=== PATIENT | female | born 1970 | race Caucasian/White ===

== ENCOUNTER → 2018-07-23 11:05 | Outpatient (CLI) | payer OTHER, SELFPAY ==
[2018-07-23 11:37] LABS: Add Manual Diff / Slide Review NO; Basophils Percent Auto 0.4 % (0-2); Eosinophils Percent Auto 2.2 % (2-4); Hematocrit 39.8 % (36-46); Hemoglobin 13.5 g/dL (12.0-16.0); Mean Corpuscular HGB Conc 33.8 % (30-36); Mean Corpuscular Hemoglobin 29.2 PG (26-34); Mean Corpuscular Volume 86.4 fL (80-100); Monocytes Percent Auto 6.6 % (3-14); Neutrophils Absolute Auto 3100 /uL (3000-5900); Neutrophils Percent Auto 65.8 % (50-75); Platelet Count 252 X10^3/uL (150-400); Red Cell Distribution Width 13.4 % (11.6-14.8); White Blood Cell Count 4.8 X10^3/uL (4.5-11.0)
[2018-07-23 11:53] LABS: Alanine Aminotransferase 24 IU/L (9-52); Albumin 4.9 g/dL (3.5-5.0); Albumin Globulin Ratio 1.3 (1.0-2.8); Alkaline Phosphatase 67 U/L (38-126); Aspartate Aminotransferase 28 IU/L (14-36); BUN Creatinine Ratio 22.9 (6-22); Bilirubin Total 0.3 mg/dL (0.2-1.3); Blood Urea Nitrogen 16 mg/dL (7-17); Calcium 9.7 mg/dL (8.4-10.2); Carbon Dioxide 27 mmol/L (22-32); Chloride 100 mmol/L (98-107); Cholesterol 245 mg/dL (140-199); Estimated Glomerular Filt Rate > 60.0 mL/min (>60); Globulin 3.7 g/dL (1.7-4.1); Glucose 92 mg/dL (70-100); HDL Cholesterol 78 mg/dL (40-60); HEMOLYSIS < 15 (0-50); LDL Cholesterol Calculated 151 mg/dL (<100); Potassium 4.2 mmol/L (3.4-5.1); Sodium 142 mmol/L (137-145); Total Protein 8.6 g/dL (6.3-8.2); Triglycerides 80 mg/dL (35-150)
[2018-07-23 12:12] LABS: Free T3, Triiodothyronine Free 3.67 pg/mL (2.77-5.27); Free T4, Direct Thyroxine 1.45 ng/dL (0.78-2.19)
[2018-07-23 12:26] LABS: Thyroid Stimulating Hormone 0.83 uIU/mL (0.47-4.68)
[2018-07-25 14:32] LABS: Thyroid Peroxidase Antibodies 332 IU/mL (< 9)
[2018-07-26 14:10] LABS: QuantiFERON TB NEGATIVE (Negative)
== END ==
PROVIDERS: Visit Provider Naturopath
DX: Z00.00 Encounter for general adult medical examination without abnormal findings (principal); E06.3 Autoimmune thyroiditis
CPT/HCPCS: 36415; 80053; 80061; 84439; 84443; 84481; 85025; 86376; 86480

== ENCOUNTER 2019-01-19 11:15 | Outpatient (RCR) | payer OTHER, SELFPAY ==
--- NOTE | 2018-11-20 16:09 | PT.OIE ---
Current Diagnoses Pain in right shoulder (11/20/18) Cervicalgia (11/20/18) Provider Visit Care Team Role Provider Type Becki Dickerson ND Attending Provider Non-Staff Primary Care Provider Specialty: Naturopathy Address: [address] [place] [address], [facility] Email: Physical Therapy Initial Evaluation PT-OP-A Visit Information Start: 11/20/18 14:32 Freq: Status: Active Protocol: Document 11/20/18 14:34 [facility] (Rec: 11/20/18 16:09 [facility] [id number]) Out-Patient Physical Therapy Visit Information Visit Information Visit Type Initial Evaluation Visit Start Time 14:35 Visit Stop Time 15:30 Total Visit Minutes 55 Visit Number 09/09 Number of SINKER PULLER Visits 0 PT-OP-B Current Condition Start: 11/20/18 14:32 Freq: Status: Active Protocol: Document 11/20/18 14:34 [facility] (Rec: 11/20/18 15:29 [facility] [id number]) Current Condition History of Current Condition History of Current Condition Pt reports the pain started about 2 weeks ago during a run and she felt it in her upper arm and shoulder and down into shoulder blade. Pt reprots it improved and then went for a 10 mile run the next week on Friday and was tilting her head back in the shower and the pain was intense in R scapular region. She has not felt it in her upper arm since the first time. On Friday, she was feeling it up her neck and starting to give her a SHAW until she had a coworker massaged it and she used ice then heat and TENs later. Treatment Goals Patient/Caregiver Goals Dec pain and be able to run w/ o pain-plans to do a marathon. Sleep through the night without pain. PT-OP-C Subjective Start: 11/20/18 14:32 Freq: Status: Active Protocol: Document 11/20/18 14:34 [facility] (Rec: 11/20/18 15:29 [facility] [id number]) Patient Questionnaires Neck Disability Index NDI Score 10 Neck Disability Index Impairment 20 to 39% Impaired (Score 10- 19) Quick Dash- Upper Extremity Quick Dash UE Score 25 Quick Dash UE Impairment 20 to 39% Impaired (Score 20- 39) OP-PT Pain Assessment Location R scap Pain Location Details medial border Intensity 3 Scale Used Numeric (1 - 10) Description Aching Description- Other at worst 8/10 Frequency Intermittent Radiating Location SHAW & up neck & into R shoulder Other Pain Aggravating Factors rolling position, running, Pain Alleviating Factors Heat Other Pain Alleviating Factors ESTIM, neutralize spine PT-OP-F Manual Assessment Start: 11/20/18 14:32 Freq: Status: Active Protocol: Document 11/20/18 14:34 [facility] (Rec: 11/20/18 15:29 [facility] [id number]) Manual Assessments Soft Tissue Assessment Soft Tissue Mobility Assessment Tightness through parascapular mm, UT, LS Joint Mobility Assessment Joint Mobility Assessment elevated clavicle at SC joint R, R elevated 1st rib PT-OP-G Mobility & Gait Start: 11/20/18 14:32 Freq: Status: Active Protocol: Document 11/20/18 14:34 [facility] (Rec: 11/20/18 16:09 [facility] [id number]) OP Gait Assessment Comments Gait Comments Running-pt has elevation of shoulder girdle with ext of shoulder during running. PT-OP-J Posture/Palpation/Skin Start: 11/20/18 14:32 Freq: Status: Active Protocol: Document 11/20/18 14:34 [facility] (Rec: 11/20/18 16:09 [facility] [id number]) Posture Evaluation [facility] Postural Classification System Martin Postural Classifications Vertical/Posterior Elbow Flexion Test 0 PT-OP-K Range of Motion Start: 11/20/18 14:32 Freq: Status: Active Protocol: Document 11/20/18 14:34 [facility] (Rec: 11/20/18 15:29 [facility] [id number]) Cervical Spine Range of Motion Cervical Spine Active Degrees Testing Position Sitting Flexion 50 Extension 61 Rotation Left 70 Rotation Right 58 Lateral Flexion Left 35 Lateral Flexion Right 43 ROM Limitations Soft Tissue Tightness Pain Comments Shoulder ROM WNL but pain w/ abd, Habd/add, & rot PT-OP-L Special Tests Start: 11/20/18 14:32 Freq: Status: Active Protocol: Document 11/20/18 14:34 [facility] (Rec: 11/20/18 16:09 [facility] [id number]) Special Tests Cervical Spine Special Tests VAT Test Results quadrant neg Alar Ligament Test Results neg spurling Test Results neg PT-OP-M Strength Start: 11/20/18 14:32 Freq: Status: Active Protocol: Document 11/20/18 14:34 [facility] (Rec: 11/20/18 15:29 [facility] [id number]) Shoulder Strength Shoulder Manual Muscle Testing Right Flexion 4 Good Extension 4+ Good+ Abduction (C5) 4 Good External Rotation 4 Good Internal Rotation 5 Normal Left Reason Not Measured WFL PT-OP-Q Treatments Start: 11/20/18 14:32 Freq: Status: Active Protocol: Document 11/20/18 14:34 [facility] (Rec: 11/20/18 16:09 [facility] [id number]) Therapeutic Exercises Standing Exercises wall posture Standing Exercise Name w/90/90 ER Side bilateral Reps/Minutes 10 Manual Therapy Treatment Soft Tissue Mobilization UT/LS Body Location UT/LS Mobilization Type Rolling Intensity/Depth Moderate Body Position Sidelying Joint Mobilizations AC Joint AC Direction clavicle ant FM Body Position Supine SC Joint SC Direction caudal FM clavicle Body Position Supine Neuro Re-Education Treatment Other Activities post depression Details post scapular depression Comments rhythmic initiation progressed to combo of isotonics w/UE resistance PT-OP-T Assessment and Plan Start: 11/20/18 14:32 Freq: Status: Active Protocol: Document 11/20/18 14:34 [facility] (Rec: 11/20/18 16:09 [facility] [id number]) Physical Therapy Assessment Rehab Potential Rehabilitation Potential Good Evaluation Complexity Number of Personal Factors/Comorbidities 1-2 Clinical Presentation at Evaluation Evolving Impairments Impairments Activity Tolerance Functional Activities Functional Mobility Gait Pain Posture ROM Soft Tissue Mobility Strength Goals Strength Short Term Goal (STG) Pt will be indep with HEP. STG Duration 12/20/18 Fdc Goal (LTG) Pt will have 5/5 BUE without pain to allow typical activities without pain. LTG Duration 01/20/19 ROM Galvanizer Zinc Goal (LTG) Pt will have full neck & shoulder ROM without pain to allow functional return to activities without pain. LTG Duration 01/20/19 activity tolerance Short Term Goal (STG) Pt will be able to position herself when sleeping and not have pain waking her up. STG Duration 12/20/18 Galvanizer Zinc Goal (LTG) Pt will be able to run any length without inc of neck/ shoulder pain. LTG Duration 01/20/19 Assessment Summary Assessment Pt presents with R scapular pain that has affected her ability to do long runs and have caused SHAW during daily activities. Pain has travelled between neck, scapula & R shoulder. She has impaired running mechanics & scapular patterning. Physical Therapy Plan Frequency and Duration Frequency of Treatment 1-2x/week Duration of Treatment 2 months Plan of Care Start Date 11/20/18 Plan of Care End Date 01/20/19 Therapeutic Interventions Therapeutic Interventions Gait Training Home Exercise Program Joint Mobilizations Manual Therapy Neuromuscular Re-education Patient/Caregiver Education Self-Care/Home Management Soft Tissue Mobilization Taping Therapeutic Activities Therapeutic Exercises Modalities Cold Pack/Ice Massage Electric Stimulation Hot Packs Infrared Therapy Iontophoresis Traction- Mechanical Ultrasound Next Visit Focus/Plan Next Note Type Treatment Note Next Visit Plan cont to work on neuro redu, work on rowing and lat pull down strength, shoulder mobs
--- NOTE | 2018-11-20 16:09 | PT.OPPOC ---
Current Diagnoses Pain in right shoulder (11/20/18) Cervicalgia (11/20/18) Provider Visit Care Team Role Provider Type Becki Dickerson ND Attending Provider Non-Staff Primary Care Provider Specialty: Naturopathy Address: [address] [place] [address], [facility] Email: Plan Of Care PT-OP-T Assessment and Plan Start: 11/20/18 14:32 Freq: Status: Active Protocol: Document 11/20/18 14:34 [facility] (Rec: 11/20/18 16:09 [facility] [id number]) Physical Therapy Assessment Rehab Potential Rehabilitation Potential Good Evaluation Complexity Number of Personal Factors/Comorbidities 1-2 Clinical Presentation at Evaluation Evolving Impairments Impairments Activity Tolerance Functional Activities Functional Mobility Gait Pain Posture ROM Soft Tissue Mobility Strength Goals Strength Short Term Goal (STG) Pt will be indep with HEP. STG Duration 12/20/18 Detention Goal (LTG) Pt will have 5/5 BUE without pain to allow typical activities without pain. LTG Duration 01/20/19 ROM Physical Therapy Instructor Goal (LTG) Pt will have full neck & shoulder ROM without pain to allow functional return to activities without pain. LTG Duration 01/20/19 activity tolerance Short Term Goal (STG) Pt will be able to position herself when sleeping and not have pain waking her up. STG Duration 12/20/18 Detention Goal (LTG) Pt will be able to run any length without inc of neck/ shoulder pain. LTG Duration 01/20/19 Assessment Summary Assessment Pt presents with R scapular pain that has affected her ability to do long runs and have caused SHAW during daily activities. Pain has travelled between neck, scapula & R shoulder. She has impaired running mechanics & scapular patterning. Physical Therapy Plan Frequency and Duration Frequency of Treatment 1-2x/week Duration of Treatment 2 months Plan of Care Start Date 11/20/18 Plan of Care End Date 01/20/19 Therapeutic Interventions Therapeutic Interventions Gait Training Home Exercise Program Joint Mobilizations Manual Therapy Neuromuscular Re-education Patient/Caregiver Education Self-Care/Home Management Soft Tissue Mobilization Taping Therapeutic Activities Therapeutic Exercises Modalities Cold Pack/Ice Massage Electric Stimulation Hot Packs Infrared Therapy Iontophoresis Traction- Mechanical Ultrasound Next Visit Focus/Plan Next Note Type Treatment Note Next Visit Plan cont to work on neuro redu, work on rowing and lat pull down strength, shoulder mobs Plan of Care Dates Plan of Care Start Date 11/20/18 Plan of Care End Date 01/20/19 Please Sign and Return: I have reviewed this Plan of Care and certify that the skilled therapy services above are required to meet the patient?s needs. Physician Signature Date Printed Name and Credentials Clinical Instructor Signature Printed Name and Credentials
--- NOTE | 2018-11-23 18:59 | PT.OTN ---
Current Diagnoses Pain in right shoulder (11/23/18) Cervicalgia (11/23/18) Physical Therapy Treatment Note PT-OP-A Visit Information Start: 11/20/18 14:32 Freq: Status: Active Protocol: Document 11/23/18 18:54 [facility] (Rec: 11/23/18 18:59 [facility] [id number]) Out-Patient Physical Therapy Visit Information Visit Information Visit Type Treatment Note Visit Start Time 16:50 Visit Stop Time 17:40 Total Visit Minutes 50 Visit Number 2 Number of RUBBER GOODS FINISHER Visits 0 PT-OP-B Current Condition Start: 11/20/18 14:32 Freq: Status: Active Protocol: Document 11/20/18 14:34 [facility] (Rec: 11/20/18 15:29 [facility] [id number]) Current Condition History of Current Condition History of Current Condition Pt reports the pain started about 2 weeks ago during a run and she felt it in her upper arm and shoulder and down into shoulder blade. Pt reprots it improved and then went for a 10 mile run the next week on Friday and was tilting her head back in the shower and the pain was intense in R scapular region. She has not felt it in her upper arm since the first time. On Friday, she was feeling it up her neck and starting to give her a SHAW until she had a coworker massaged it and she used ice then heat and TENs later. Treatment Goals Patient/Caregiver Goals Dec pain and be able to run w/ o pain-plans to do a marathon. Sleep through the night without pain. PT-OP-C Subjective Start: 11/20/18 14:32 Freq: Status: Active Protocol: Document 11/23/18 18:54 [facility] (Rec: 11/23/18 18:59 [facility] [id number]) OP-PT Subjective Patient Comments Patient Comments Pt reports she was sore in her LB, R knee & R shoulder blade after race. She is feeling better today but still feels it in her shoulder blade. She feels like she does not connect well through that side . PT-OP-F Manual Assessment Start: 11/20/18 14:32 Freq: Status: Active Protocol: Document 11/20/18 14:34 [facility] (Rec: 11/20/18 15:29 [facility] [id number]) Manual Assessments Soft Tissue Assessment Soft Tissue Mobility Assessment Tightness through parascapular mm, UT, LS Joint Mobility Assessment Joint Mobility Assessment elevated clavicle at SC joint R, R elevated 1st rib PT-OP-G Mobility & Gait Start: 11/20/18 14:32 Freq: Status: Active Protocol: Document 11/20/18 14:34 [facility] (Rec: 11/20/18 16:09 [facility] [id number]) OP Gait Assessment Comments Gait Comments Running-pt has elevation of shoulder girdle with ext of shoulder during running. PT-OP-J Posture/Palpation/Skin Start: 11/20/18 14:32 Freq: Status: Active Protocol: Document 11/20/18 14:34 [facility] (Rec: 11/20/18 16:09 [facility] [id number]) Posture Evaluation Martin Postural Classification System Martin Postural Classifications Vertical/Posterior Elbow Flexion Test 0 PT-OP-K Range of Motion Start: 11/20/18 14:32 Freq: Status: Active Protocol: Document 11/20/18 14:34 [facility] (Rec: 11/20/18 15:29 [facility] [id number]) Cervical Spine Range of Motion Cervical Spine Active Degrees Testing Position Sitting Flexion 50 Extension 61 Rotation Left 70 Rotation Right 58 Lateral Flexion Left 35 Lateral Flexion Right 43 ROM Limitations Soft Tissue Tightness Pain Comments Shoulder ROM WNL but pain w/ abd, Habd/add, & rot PT-OP-L Special Tests Start: 11/20/18 14:32 Freq: Status: Active Protocol: Document 11/20/18 14:34 [facility] (Rec: 11/20/18 16:09 [facility] [id number]) Special Tests Cervical Spine Special Tests VAT Test Results quadrant neg Alar Ligament Test Results neg spurling Test Results neg PT-OP-M Strength Start: 11/20/18 14:32 Freq: Status: Active Protocol: Document 11/20/18 14:34 [facility] (Rec: 11/20/18 15:29 [facility] [id number]) Shoulder Strength Shoulder Manual Muscle Testing Right Flexion 4 Good Extension 4+ Good+ Abduction (C5) 4 Good External Rotation 4 Good Internal Rotation 5 Normal Left Reason Not Measured WFL PT-OP-Q Treatments Start: 11/20/18 14:32 Freq: Status: Active Protocol: Document 11/23/18 18:54 [facility] (Rec: 11/23/18 18:59 [facility] [id number]) Manual Therapy Treatment Soft Tissue Mobilization lats Body Location lats Mobilization Type Myofascial Release Comments plunger with shoulder abd scap Body Location med scap border & supraspinatus Mobilization Type Rolling Sustained Pressure Intensity/Depth Moderate UT/LS Body Location UT/LS & cervical paraspinals Mobilization Type Rolling Intensity/Depth Moderate Body Position Sidelying Neuro Re-Education Treatment Other Activities mass ext Details post elevation of scap & post depression of pelvis w/rolling mass flex Details ant dep of scap & ant elevation of pelvis w/ rolling post depression Details post scapular depression Comments rhythmic initiation progressed to combo of isotonics w/UE resistance PT-OP-T Assessment and Plan Start: 11/20/18 14:32 Freq: Status: Active Protocol: Document 11/23/18 18:54 [facility] (Rec: 11/23/18 18:59 [facility] [id number]) Physical Therapy Assessment Goals Strength Short Term Goal (STG) Pt will be indep with HEP. STG Duration 12/20/18 [facility] Goal (LTG) Pt will have 5/5 BUE without pain to allow typical activities without pain. LTG Duration 01/20/19 ROM [facility] Goal (LTG) Pt will have full neck & shoulder ROM without pain to allow functional return to activities without pain. LTG Duration 01/20/19 activity tolerance Short Term Goal (STG) Pt will be able to position herself when sleeping and not have pain waking her up. STG Duration 12/20/18 [facility] Goal (LTG) Pt will be able to run any length without inc of neck/ shoulder pain. LTG Duration 01/20/19 Assessment Summary Assessment Pt had improved rolling performance with cueing and facilitation. She does not connect well between UE and LE which may play a part in her injuries. She is improving in ability to do appropriate arm swing with running. Physical Therapy Plan Frequency and Duration Frequency of Treatment 1-2x/week Duration of Treatment 2 months Plan of Care Start Date 11/20/18 Plan of Care End Date 01/20/19 Next Visit Focus/Plan Next Note Type Treatment Note Next Visit Plan cont to work post depression of UE as well and progressive patterns between UE & LE movement, progress to crawling , scapular stabilization & shoulder mobs
--- NOTE | 2019-01-19 15:54 | PT.OTRE ---
Current Diagnoses Pain in right shoulder (01/19/19) Cervicalgia (01/19/19) Provider Visit Care Team Role Provider Type Becki Dickerson ND Attending Provider Non-Staff Primary Care Provider Specialty: Naturopathy Address: [address] [place] [address], [facility] Email: Physical Therapy Re-Evaluation PT-OP-A Visit Information Start: 11/20/18 14:32 Freq: Status: Active Protocol: Document 01/19/19 11:27 [facility] (Rec: 01/19/19 15:54 [facility] [id number]) Out-Patient Physical Therapy Visit Information Visit Information Visit Type Re-Evaluation Visit Start Time 11:15 Visit Stop Time 12:05 Total Visit Minutes 50 Visit Number 3 Number of TANK TERMINAL GAUGER Visits 0 PT-OP-B Current Condition Start: 11/20/18 14:32 Freq: Status: Active Protocol: Document 01/19/19 11:27 [facility] (Rec: 01/19/19 15:54 [facility] [id number]) Current Condition History of Current Condition History of Current Condition Pt has improved scapular & neck/shoulder pain but is reporting recent inc of lumbar pain and being limited in her running by R HS pain.S he has started chiro treatment Treatment Goals Patient/Caregiver Goals Dec pain and be able to run w/ o pain. Sleep through the night without pain. PT-OP-C Subjective Start: 11/20/18 14:32 Freq: Status: Active Protocol: Document 01/19/19 11:27 [facility] (Rec: 01/19/19 15:54 [facility] [id number]) OP-PT Subjective Patient Comments Patient Comments Pt reports shoulder is over all is doing better but is also noting LBP & R HS pain. She has been seeing a chiropractor for mobilizations who notes her pelvis is rotated and her L psoas is tight and she needs to get that worked on. PT-OP-F Manual Assessment Start: 11/20/18 14:32 Freq: Status: Active Protocol: Document 01/19/19 11:27 [facility] (Rec: 01/19/19 15:54 [facility] [id number]) Manual Assessments Soft Tissue Assessment Soft Tissue Mobility Assessment HS tightness 69 deg straight knee hip flex R & L91 deg Joint Mobility Assessment Joint Mobility Assessment elevated R iliac crest & post rotated PT-OP-G Mobility & Gait Start: 11/20/18 14:32 Freq: Status: Active Protocol: Document 11/20/18 14:34 [facility] (Rec: 11/20/18 16:09 [facility] [id number]) OP Gait Assessment Comments Gait Comments Running-pt has elevation of shoulder girdle with ext of shoulder during running. PT-OP-J Posture/Palpation/Skin Start: 11/20/18 14:32 Freq: Status: Active Protocol: Document 01/19/19 11:27 [facility] (Rec: 01/19/19 12:15 [facility] [id number]) Posture Evaluation Martin Postural Classification System Martin Postural Classifications Vertical/Posterior Vertebral Compression Test 4 Elbow Flexion Test 4 Lumbar Protective Mechanism Left AP 0 Lumbar Protective Mechanism Right AP 2 Lumbar Protective Mechanism Left PA 3 Lumbar Protective Mechanism Right PA 3 PT-OP-K Range of Motion Start: 11/20/18 14:32 Freq: Status: Active Protocol: Document 01/19/19 11:27 [facility] (Rec: 01/19/19 12:15 [facility] [id number]) Cervical Spine Range of Motion Cervical Spine Active Degrees Flexion 70 Extension 73 Rotation Left 81 Rotation Right 83 Lateral Flexion Left 30 Lateral Flexion Right 45 Comments Pain R rot & SB Lumbar Spine Range of Motion Lumbar Spine Active Degrees Flexion 71 Extension 42 Rotation Left 79 Rotation Right 81 Lateral Flexion Left 28 Lateral Flexion Right 21 PT-OP-L Special Tests Start: 11/20/18 14:32 Freq: Status: Active Protocol: Document 01/19/19 11:27 [facility] (Rec: 01/19/19 12:15 [facility] [id number]) Special Tests Lumbar Spine Special Tests Slump Test Results neg PT-OP-M Strength Start: 11/20/18 14:32 Freq: Status: Active Protocol: Document 01/19/19 11:27 [facility] (Rec: 01/19/19 15:54 [facility] [id number]) Shoulder Strength Shoulder Manual Muscle Testing Right Flexion 5 Normal Extension 5 Normal Abduction (C5) 5 Normal External Rotation 4 Good Internal Rotation 5 Normal Left Reason Not Measured WFL PT-OP-Q Treatments Start: 11/20/18 14:32 Freq: Status: Active Protocol: Document 01/19/19 11:27 [facility] (Rec: 01/19/19 15:54 [facility] [id number]) Therapeutic Exercises Standing Exercises row Standing Exercise Name B shoulder ext Side bilateral Equipment Used L1 Reps/Minutes 10x2 Therapeutic Activity Therapeutic Activity posture Name seated & standing edu Manual Therapy Treatment Soft Tissue Mobilization psoas Body Location L psoas Comments seated & supine FM w/use of UE chop pattern PT-OP-T Assessment and Plan Start: 11/20/18 14:32 Freq: Status: Active Protocol: Document 01/19/19 11:27 [facility] (Rec: 01/19/19 15:54 [facility] [id number]) Physical Therapy Assessment Rehab Potential Rehabilitation Potential Good Impairments Impairments Activity Tolerance Functional Activities Functional Mobility Gait Pain Posture ROM Soft Tissue Mobility Strength Goals posture Short Term Goal (STG) Pt will present with good posture without cueing. STG Duration 02/22/19 stability Sociology Faculty Member Goal (LTG) Pt will have 5/5 LPM, VCT & EFT in order to have improved stability of core to improve ribcage stability to dec shoulder, LB & HS pain. LTG Duration 03/22/19 Strength Short Term Goal (STG) Pt will be indep with HEP. STG Duration 12/20/18 Long-Term Goal (LTG) Pt will have 5/5 BUE without pain to allow typical activities without pain. 01/19-signficantly improved LTG Duration 02/19/19 ROM Sociology Faculty Member Goal (LTG) Pt will have full neck & shoulder ROM without pain to allow functional return to activities without pain. LTG Duration achieved activity tolerance Short Term Goal (STG) Pt will be able to position herself when sleeping and not have pain waking her up. 01/19-improved but pt having difficulty maintaining good positions STG Duration 02/26/19 Sociology Faculty Member Goal (LTG) Pt will be able to run any length without inc of neck/ shoulder pain. 01/19-improved ability to run with only some tightness in UE but is limited by LB & R HS at this time. Advance goal to be able to do long training runs without any LB, HS or cervical/shoulder pain. LTG Duration 03/22/19 Assessment Summary Assessment Pt presents with significant limitiation in HS ROM & is elevated on R side and rotated at PSIS. She is having significant problems with running, daily life and activity tolerance d/t this pain. She has improved significantly with stability of R shoulder & cervical ROM w / use of exercises & Physical Therapy Plan Frequency and Duration Frequency of Treatment 1-2x/week Duration of Treatment 2 months Plan of Care Start Date 01/19/19 Plan of Care End Date 03/21/19 Therapeutic Interventions Therapeutic Interventions Balance Training Gait Training Home Exercise Program Joint Mobilizations Manual Therapy Neuromuscular Re-education Patient/Caregiver Education Self-Care/Home Management Soft Tissue Mobilization Taping Therapeutic Activities Therapeutic Exercises Modalities Cold Pack/Ice Massage Electric Stimulation Hot Packs Infrared Therapy Iontophoresis Traction- Mechanical Ultrasound Next Visit Focus/Plan Next Note Type Treatment Note Next Visit Plan work on postural stability & core stability for dec shoulder & lumbar pain.
--- NOTE | 2019-01-19 15:54 | PT.OPPOC ---
Current Diagnoses Pain in right shoulder (01/19/19) Cervicalgia (01/19/19) Provider Visit Care Team Role Provider Type Becki Dickerson ND Attending Provider Non-Staff Primary Care Provider Specialty: Naturopathy Address: [address] [place] [address], [id number] Email: Plan Of Care PT-OP-T Assessment and Plan Start: 11/20/18 14:32 Freq: Status: Active Protocol: Document 01/19/19 11:27 [facility] (Rec: 01/19/19 15:54 [facility] [id number]) Physical Therapy Assessment Rehab Potential Rehabilitation Potential Good Impairments Impairments Activity Tolerance Functional Activities Functional Mobility Gait Pain Posture ROM Soft Tissue Mobility Strength Goals posture Short Term Goal (STG) Pt will present with good posture without cueing. STG Duration 02/22/19 stability Grinder Set Up Operator Centerless Goal (LTG) Pt will have 5/5 LPM, VCT & EFT in order to have improved stability of core to improve ribcage stability to dec shoulder, LB & HS pain. LTG Duration 03/22/19 Strength Short Term Goal (STG) Pt will be indep with HEP. STG Duration 12/20/18 Half-Way Goal (LTG) Pt will have 5/5 BUE without pain to allow typical activities without pain. 01/19-signficantly improved LTG Duration 02/19/19 ROM Half-Way Goal (LTG) Pt will have full neck & shoulder ROM without pain to allow functional return to activities without pain. LTG Duration achieved activity tolerance Short Term Goal (STG) Pt will be able to position herself when sleeping and not have pain waking her up. 01/19-improved but pt having difficulty maintaining good positions STG Duration 02/26/19 Half-Way Goal (LTG) Pt will be able to run any length without inc of neck/ shoulder pain. 01/19-improved ability to run with only some tightness in UE but is limited by LB & R HS at this time. Advance goal to be able to do long training runs without any LB, HS or cervical/shoulder pain. LTG Duration 03/22/19 Assessment Summary Assessment Pt presents with significant limitiation in HS ROM & is elevated on R side and rotated at PSIS. She is having significant problems with running, daily life and activity tolerance d/t this pain. She has improved significantly with stability of R shoulder & cervical ROM w / use of exercises & Physical Therapy Plan Frequency and Duration Frequency of Treatment 1-2x/week Duration of Treatment 2 months Plan of Care Start Date 01/19/19 Plan of Care End Date 03/21/19 Therapeutic Interventions Therapeutic Interventions Balance Training Gait Training Home Exercise Program Joint Mobilizations Manual Therapy Neuromuscular Re-education Patient/Caregiver Education Self-Care/Home Management Soft Tissue Mobilization Taping Therapeutic Activities Therapeutic Exercises Modalities Cold Pack/Ice Massage Electric Stimulation Hot Packs Infrared Therapy Iontophoresis Traction- Mechanical Ultrasound Next Visit Focus/Plan Next Note Type Treatment Note Next Visit Plan work on postural stability & core stability for dec shoulder & lumbar pain. Plan of Care Dates Plan of Care Start Date 01/19/19 Plan of Care End Date 03/21/19 Please Sign and Return: I have reviewed this Plan of Care and certify that the skilled therapy services above are required to meet the patient?s needs. Physician Signature Date Printed Name and Credentials Clinical Instructor Signature Printed Name and Credentials
--- NOTE | 2019-06-02 16:14 | PT.OPDS ---
Current Diagnoses Pain in right shoulder (01/19/19) Cervicalgia (01/19/19) Sprain of sacroiliac joint, initial encounter (01/19/19) Strain of muscle, fascia and tendon of lower back, initial encounter (01/19/19) Visit Care Team Role Provider Type Becki Dickerson ND Family Provider Non-Staff Primary Care Provider Specialty: Naturopathy Address: [address] [place] [address], [id number] Email: Keagan Daily DC Attending Provider Non-Staff Referring Provider Specialty: Chiropractic Address: [address] [place] [address], [id number] Email: Visit Number Visit Number 3 Discharge Summary PT-OP-B Current Condition Start: 11/20/18 14:32 Freq: Status: Active Protocol: Document 01/19/19 11:27 [facility] (Rec: 01/19/19 15:54 [facility] [id number]) Current Condition History of Current Condition History of Current Condition Pt has improved scapular & neck/shoulder pain but is reporting recent inc of lumbar pain and being limited in her running by R HS pain.S he has started chiro treatment Treatment Goals Patient/Caregiver Goals Dec pain and be able to run w/ o pain. Sleep through the night without pain. PT-OP-C Subjective Start: 11/20/18 14:32 Freq: Status: Active Protocol: Document 01/19/19 11:27 [facility] (Rec: 01/19/19 15:54 [facility] [id number]) OP-PT Subjective Patient Comments Patient Comments Pt reports shoulder is over all is doing better but is also noting LBP & R HS pain. She has been seeing a chiropractor for mobilizations who notes her pelvis is rotated and her L psoas is tight and she needs to get that worked on. PT-OP-F Manual Assessment Start: 11/20/18 14:32 Freq: Status: Active Protocol: Document 01/19/19 11:27 [facility] (Rec: 01/19/19 15:54 [facility] [id number]) Manual Assessments Soft Tissue Assessment Soft Tissue Mobility Assessment HS tightness 69 deg straight knee hip flex R & L91 deg Joint Mobility Assessment Joint Mobility Assessment elevated R iliac crest & post rotated PT-OP-G Mobility & Gait Start: 11/20/18 14:32 Freq: Status: Active Protocol: Document 11/20/18 14:34 [facility] (Rec: 11/20/18 16:09 [facility] [id number]) OP Gait Assessment Comments Gait Comments Running-pt has elevation of shoulder girdle with ext of shoulder during running. PT-OP-J Posture/Palpation/Skin Start: 11/20/18 14:32 Freq: Status: Active Protocol: Document 01/19/19 11:27 [facility] (Rec: 01/19/19 12:15 [facility] [id number]) Posture Evaluation Martin Postural Classification System Martin Postural Classifications Vertical/Posterior Vertebral Compression Test 4 Elbow Flexion Test 4 Lumbar Protective Mechanism Left AP 0 Lumbar Protective Mechanism Right AP 2 Lumbar Protective Mechanism Left PA 3 Lumbar Protective Mechanism Right PA 3 PT-OP-K Range of Motion Start: 11/20/18 14:32 Freq: Status: Active Protocol: Document 01/19/19 11:27 [facility] (Rec: 01/19/19 12:15 [facility] [id number]) Cervical Spine Range of Motion Cervical Spine Active Degrees Flexion 70 Extension 73 Rotation Left 81 Rotation Right 83 Lateral Flexion Left 30 Lateral Flexion Right 45 Comments Pain R rot & SB Lumbar Spine Range of Motion Lumbar Spine Active Degrees Flexion 71 Extension 42 Rotation Left 79 Rotation Right 81 Lateral Flexion Left 28 Lateral Flexion Right 21 PT-OP-L Special Tests Start: 11/20/18 14:32 Freq: Status: Active Protocol: Document 01/19/19 11:27 [facility] (Rec: 01/19/19 12:15 [facility] [id number]) Special Tests Lumbar Spine Special Tests Slump Test Results neg PT-OP-M Strength Start: 11/20/18 14:32 Freq: Status: Active Protocol: Document 01/19/19 11:27 [facility] (Rec: 01/19/19 15:54 [facility] [id number]) Shoulder Strength Shoulder Manual Muscle Testing Right Flexion 5 Normal Extension 5 Normal Abduction (C5) 5 Normal External Rotation 4 Good Internal Rotation 5 Normal Left Reason Not Measured WFL PT-OP-T Assessment and Plan Start: 11/20/18 14:32 Freq: Status: Active Protocol: Document 06/02/19 16:13 [facility] (Rec: 06/02/19 16:14 [facility] [id number]) Physical Therapy Plan Discharge Physical Therapy Discharge Reasons No Longer Attending PT Discharge Comments Pt progressed to being able to run a marathon recently. She is no longer attending PT. D/C at this time.
== END 2019-06-09 16:12 | disposition home or self-care (01) ==
LOC: PHYS 11:15
PROVIDERS: Family Provider Naturopath; PCP Naturopath; Referring Provider Chiropractor; Visit Provider Chiropractor
DX: M54.2 Cervicalgia (principal); M25.511 Pain in right shoulder; S39.012A Strain of muscle, fascia and tendon of lower back, initial encounter; S33.6XXA Sprain of sacroiliac joint, initial encounter
CPT/HCPCS: 97112; 97140; 97162; 97164; 97530

== ENCOUNTER → 2019-05-04 09:44 | Outpatient (CLI) | payer OTHER, SELFPAY | PROVIDERS: PCP Naturopath | DX: Z23 Encounter for immunization (principal) | CPT/HCPCS: 90471; 90686 ==

== ENCOUNTER → 2019-07-23 11:44 | Outpatient (CLI) | payer OTHER, SELFPAY ==
[2019-07-23 12:19] LABS: Add Manual Diff / Slide Review NO; Basophils Absolute Auto 0 /uL (0-100); Basophils Percent Auto 0.6 % (0-2); Eosinophils Absolute Auto 100 /uL (0-450); Eosinophils Percent Auto 1.7 % (2-4); Hematocrit 37.4 % (36-46); Hemoglobin 12.6 g/dL (12.0-16.0); Lymphocytes Absolute Auto 1400 /uL (1100-4500); Lymphocytes Percent Auto 38.5 % (25-40); Mean Corpuscular HGB Conc 33.6 % (30-36); Mean Corpuscular Hemoglobin 29.1 PG (26-34); Mean Corpuscular Volume 86.7 fL (80-100); Monocytes Absolute Auto 300 /uL (0-900); Monocytes Percent Auto 7.5 % (3-14); Neutrophils Absolute Auto 1800 /uL (1500-7000); Neutrophils Percent Auto 51.7 % (50-75); Platelet Count 237 X10^3/uL (150-400); Red Blood Cell Count 4.31 X10^6/uL (4.0-5.2); Red Cell Distribution Width 13.8 % (11.6-14.8); White Blood Cell Count 3.6 X10^3/uL (4.5-11.0)
[2019-07-23 12:37] LABS: Alanine Aminotransferase 19 IU/L (<35); Albumin 4.8 g/dL (3.5-5.0); Albumin Globulin Ratio 1.3 (1.0-2.8); Alkaline Phosphatase 54 U/L (38-126); Aspartate Aminotransferase 31 IU/L (14-36); BUN Creatinine Ratio 18.8 (6-22); Bilirubin Total 0.5 mg/dL (0.2-1.3); Blood Urea Nitrogen 15 mg/dL (7-17); Calcium 9.8 mg/dL (8.4-10.2); Carbon Dioxide 30 mmol/L (22-32); Chloride 102 mmol/L (98-107); Cholesterol 246 mg/dL (140-199); Estimated Glomerular Filt Rate > 60.0 mL/min (>60); Globulin 3.6 g/dL (1.7-4.1); Glucose 90 mg/dL (70-100); HDL Cholesterol 76 mg/dL (40-60); HEMOLYSIS < 15 (0-50); LDL Cholesterol Calculated 153 mg/dL (<100); Potassium 4.6 mmol/L (3.4-5.1); Sodium 141 mmol/L (137-145); Total Protein 8.4 g/dL (6.3-8.2); Triglycerides 83 mg/dL (35-150)
[2019-07-23 13:13] LABS: Free T3, Triiodothyronine Free 3.01 pg/mL (2.77-5.27); Free T4, Direct Thyroxine 0.52 ng/dL (0.78-2.19)
[2019-07-25 14:48] LABS: Mitogen-NIL > 10.00 IU/mL; NIL 0.01 IU/mL; QuantiFERON TB NEGATIVE (Negative); TB1-NIL < 0.01 IU/mL; TB2-NIL < 0.01 IU/mL
[2019-07-27 14:07] LABS: Thyroid Peroxidase Antibodies > 900 IU/mL (< 9)
== END ==
PROVIDERS: PCP Naturopath; Visit Provider Naturopath
DX: Z00.00 Encounter for general adult medical examination without abnormal findings (principal); Z11.1 Encounter for screening for respiratory tuberculosis; E06.3 Autoimmune thyroiditis
CPT/HCPCS: 36415; 80053; 80061; 84439; 84443; 84481; 85025; 86376; 86480

== ENCOUNTER 2019-08-19 10:26 | Observation (INO) | payer OTHER, SELFPAY ==
[2019-08-19] VITALS (9 sets, daily range): BP systolic 97–139; BP diastolic 54–93; PULSE 52–91; RESP 14–20; TEMP 36.3–36.6; O2SAT 97–100; BMI 20.3
--- NOTE | 2019-08-19 10:38 | DI.US.S_ITS ---
PROCEDURE: US ABDOMEN LIMITED INDICATIONS: EPIGASTRIC PAIN AFTER EATING TECHNIQUE: Real-time scanning was performed of the abdominal and retroperitoneal organs, with image documentation. COMPARISON: None. FINDINGS: Liver: Liver is normal in size and homogeneous in echotexture. Gallbladder: No gallstones. No gallbladder wall thickening, pericholecystic fluid or sonographic Sandhu's sign. Biliary ducts: Intrahepatic bile ducts are non-dilated. Extrahepatic bile duct caliber measures 4.9 mm. Normal is 6-7 mm or less in diameter, or 10 mm or less post-cholecystectomy. Pancreas: Visualized portions of the pancreas are sonographically normal. IMPRESSION: No ultrasound findings to explain epigastric pain. Dictated by: Fern Alberto M.D. on 08/19/2019 at 11:22 Approved by: Fern Alberto M.D. on 08/19/2019 at 11:24
[2019-08-19 11:02] LABS: Add Manual Diff / Slide Review NO; Basophils Absolute Auto 0 /uL (0-100); Basophils Percent Auto 0.4 % (0-2); Eosinophils Absolute Auto 100 /uL (0-450); Eosinophils Percent Auto 1.2 % (2-4); Hematocrit 40.2 % (36-46); Hemoglobin 14.1 g/dL (12.0-16.0); Lymphocytes Absolute Auto 1200 /uL (1100-4500); Lymphocytes Percent Auto 24.2 % (25-40); Mean Corpuscular HGB Conc 35.1 % (30-36); Mean Corpuscular Hemoglobin 30.2 PG (26-34); Mean Corpuscular Volume 86.2 fL (80-100); Monocytes Absolute Auto 300 /uL (0-900); Monocytes Percent Auto 7.3 % (3-14); Neutrophils Absolute Auto 3200 /uL (1500-7000); Neutrophils Percent Auto 66.9 % (50-75); Platelet Count 331 X10^3/uL (150-400); Red Blood Cell Count 4.67 X10^6/uL (4.0-5.2); Red Cell Distribution Width 14.3 % (11.6-14.8); White Blood Cell Count 4.8 X10^3/uL (4.5-11.0)
[2019-08-19 11:13] LABS: Alanine Aminotransferase 18 IU/L (<35); Albumin Globulin Ratio 1.3 (1.0-2.8); Alkaline Phosphatase 56 U/L (38-126); Aspartate Aminotransferase 31 IU/L (14-36); BUN Creatinine Ratio 18.6 (6-22); Bilirubin Total 0.7 mg/dL (0.2-1.3); Blood Urea Nitrogen 13 mg/dL (7-17); Calcium 9.5 mg/dL (8.4-10.2); Carbon Dioxide 27 mmol/L (22-32); Chloride 99 mmol/L (98-107); Estimated Glomerular Filt Rate > 60.0 mL/min (>60); Globulin 3.9 g/dL (1.7-4.1); Glucose 88 mg/dL (70-100); Lipase 72 U/L (23-300); Potassium 4.4 mmol/L (3.4-5.1); Sodium 136 mmol/L (137-145); Total Protein 8.9 g/dL (6.3-8.2)
[2019-08-19 11:14] LABS: HEMOLYSIS 64 (0-50)
[2019-08-19] MEDS: SODIUM CHLORIDE 0.9% 1,000 ML 150 ML IV ×2 (11:29→18:01)
--- NOTE | 2019-08-19 11:29 | ED_ITS ---
HPI - Abdominal Pain General Chief Complaint: Abdominal Pain Stated Complaint: abdominal pain Time Seen by Provider: 08/19/19 10:28 Source: patient Mode of arrival: Ambulatory Limitations: no limitations History of Present Illness HPI narrative: 49-year-old female nonsmoker with benign medical history presents with her in the chief complaint of an episode of epigastric pain that started about 30 minutes after eating dinner last night. She denies any radiation of the pain and states that it's a bit worse with palpation sometimes moving. She did have a loose watery stool last night and 1 normal bowel m ovement today. She has had no fever or chills. She denies any history of the same. Her only prior surgery is of appendectomy many years ago. She tried taking an antacid and had provided little relief MD complaint: abdominal pain Onset (ago): hour(s) Pain Consistency: intermittent Location: epigastric Severity: moderate Quality: cramping Radiation: none Migration to: no migration Relieving factors: nothing Exacerbating factors: nothing Associated symptoms: nausea Related Data Home Medications Medication Instructions Recorded Confirmed Vitamin D3 1 cap PO DAILY 08/19/19 08/19/19 multivitamin 1 tab PO DAILY 08/19/19 08/19/19 thyroid (pork) [Nutrioso Thyroid] 90 mg PO DAILY 08/19/19 08/19/19 Allergies Allergy/AdvReac Type Severity Reaction Status Date / Time wheat [WHEAT] AdvReac Mild JOINT Unverified 11/19/17 12:08 INFLAMMATION Review of Systems Constitutional Constitutional: Denies chills, Denies fatigue, Denies fever(s), Denies frequent falls, Denies lethargy and Denies weakness Eyes Eyes: Denies change in vision, Denies eye discharge, Denies irritation and Denies loss of vision ENT Ears, Nose, Mouth, and Throat: Denies change in voice, Denies dizziness, Denies neck pain, Denies sore throat and Denies throat swelling Cardiovascular Cardiovascular: Denies chest pain, Denies irregular heart rhythm, Denies lightheadedness, Denies palpitations, Denies dyspnea, Denies dyspnea on exertion and Denies orthopnea Respiratory Respiratory: Denies cough, Denies dyspnea, Denies dyspnea on exertion and Denies wheezing Gastrointestinal Gastrointestinal: Reports abdominal pain, Denies change in bowel habits, Denies diarrhea, Denies nausea and Denies vomiting Genitourinary Genitourinary: Denies hematuria, Denies flank pain, Denies urinary incontinence and Denies urinary urgency Musculoskeletal Musculoskeletal: Denies back pain, Denies muscle weakness, Denies neck pain, Denies numbness and Denies tingling Integumentary/Breasts Skin/Breast: Denies pruritus, Denies erythema, Denies rash and Denies wounds Neurologic Neurologic: Denies behavioral changes, Denies confusion, Denies dizziness, Denies frequent falls, Denies loss of vision, Denies numbness, Denies tingling and Denies weakness Psychiatric Psychiatric: Denies anxiety, Denies behavioral changes, Denies confusion, Denies depression, Denies homicidal ideation and Denies suicidal ideation Endocrine Endocrine: Denies fatigue, Denies flushing and Denies palpitations Hematologic/Lymphatic Hematologic/Lymphatic: Denies easy bruising Allergic/Immunologic Allergic/Immunologic: Denies urticaria, Denies throat swelling and Denies wheezing Patient History Medical History (Updated 08/19/19 @ 17:21 by Nesha Jamil MD) Hypothyroidism (Acute) Surgical History (Updated 08/19/19 @ 17:22 by Nesha Jamil MD) History of appendectomy (Acute) Family History (Updated 08/19/19 @ 17:23 by Nesha Jamil MD) Mother Diabetes mellitus Father History of ASCVD (arteriosclerotic cardiovascular disease) Social History household members: spouse Smoking Status: Never smoker Smoking Status: Never smoker alcohol intake frequency: a few times a week Substance Use Type: does not use Exam Narrative Exam Narrative: GENERAL: [49] year old patient appears stated age. Well- nourished, well-developed patient, in mild distress. HEAD: Atraumatic. Normocephalic. EYES: Pupils equal round and reactive. Extraocular motions intact. No scleral icterus. No injection or drainage. ENT: Nose without bleeding, purulent drainage. Throat without erythema, tonsillar hypertrophy or exudate. Airway patent. NECK: Trachea midline. Non tender CARDIOVASCULAR: Regular rate and rhythm without murmurs, gallops, or rubs. RESPIRATORY: Clear to auscultation. Breath sounds equal bilaterally. No wheezes, rales, or rhonchi. GASTROINTESTINAL: Abdomen soft, minimal epigastric pain, nondistended. EXTREMITIES: No edema or joint tenderness. BACK: Nontender without deformity or crepitance. No flank tenderness. NEURO: AOx3. SKIN: No rash or erythema of visible areas Initial Vital Signs Initial Vital Signs: Vital Signs Temperature 97.8 F 08/19/19 10:33 Pulse Rate 69 08/19/19 10:33 Respiratory Rate 14 08/19/19 10:33 Blood Pressure 139/83 08/19/19 10:33 Pulse Oximetry 100 08/19/19 10:33 Course Course Course Narrative: Initially patient's history and physical sounded most consistent with various epigastric sources of pain including pancreatitis and gallbladder. Her 1st round of labs are unremarkable and gallbladder ultrasound was unremarkable. We then gave her a GI cocktail which actually may be made things worse. While sitting in the room she had an episode of unprovoked severe crampy type pain at which point I ordered an acute abdominal series which noted air-fluid levels consistent with a possible bowel obstruction. I placed a call to General surgery whom stated given lack of vomiting, elevated white blood c ells that she is most appropriately admitted to the hospitalist. After speaking with Dr. jamil the hospitalist, we elect to perform a CT which notes transition point in the right lower quadrant. Orders Ordered: ED Orders 08/19/19 10:38 US abdomen limited Stat EKG-12 Lead Stat 08/19/19 10:50 Complete Blood Count AUTO DIFF Stat Comprehensive Metabolic Panel Stat Lipase Stat 08/19/19 13:45 XR acute abdomen series Stat 08/19/19 15:46 CT abdomen pelvis w con Stat Enoxaparin Sodium (Lovenox) 40 mg SUBCUT DAILY RONEY Sodium Chloride (Normal Saline 0.9%) 1,000 mls @ 150 mls/hr IV CONT RONEY Last Admin: 08/19/19 18:01 Dose: 150 mls/hr Documented by: Infusion: 08/19/19 16:48 Dose: 0 mls/hr Documented by: Admin: 08/19/19 11:29 Dose: 150 mls/hr Documented by: DERIK Ketorolac Tromethamine (Toradol) 15 mg IV Q6H RONEY Stop: 08/24/19 18:28 Morphine Sulfate (Morphine) 2 mg IV Q4HR PRN PRN Reason: Pain, Moderate (4-6) Naloxone HCl (Narcan) 0.2 mg IV Q2MIN PRN PRN Reason: Opiate Reversal Ondansetron HCl (Zofran) 4 mg IV Q8HR PRN PRN Reason: Nausea And Vomiting Last Admin: 08/19/19 18:34 Dose: 4 mg Documented by: LIT Discontinued Medications Al Hydrox/Mg Hydrox/Simethicone 20 ml/ Lidocaine HCl 15 ml 0 ml PO NOW ONE Stop: 08/19/19 12:37 Last Admin: 08/19/19 12:57 Dose: 35 ml Documented by: DERIK Vital Signs Vital signs: Vital Signs - 8 hr 08/19/19 12:26 08/19/19 12:33 08/19/19 13:00 Pulse Rate 58 L 60 Respiratory Rate 16 16 Blood Pressure [Right Arm] 120/78 135/81 120/85 Pulse Oximetry 100 100 100 08/19/19 14:52 08/19/19 15:00 Pulse Rate 91 H 54 L Respiratory Rate Blood Pressure [Right Arm] 106/93 H 111/65 Pulse Oximetry 99 100 MDM - Abdominal Pain Lab Data Result diagrams: 08/19/19 10:50 08/19/19 10:50 Labs: Lab Results 08/19/19 08/19/19 08/19/19 Range/Units 10:50 10:50 10:50 WBC 4.8 (4.5-11.0) X10^3/uL RBC 4.67 (4.0-5.2) X10^6/uL Hgb 14.1 (12.0-16.0) g/dL Hct 40.2 (36-46) % MCV 86.2 (80-100) fL MCH 30.2 (26-34) PG MCHC 35.1 (30-36) % RDW 14.3 (11.6-14.8) % Plt Count 331 (150-400) X10^3/uL Neut % (Auto) 66.9 (50-75) % Lymph % (Auto) 24.2 L (25-40) % [place] % (Auto) 7.3 (3-14) % Eos % (Auto) 1.2 L (2-4) % Baso % (Auto) 0.4 (0-2) % Neut # (Auto) 3200 (7667-7838) /uL Lymph # (Auto) 1200 (8811-0843) /uL [place] # (Auto) 300 (0-900) /uL Eos # (Auto) 100 (0-450) /uL Baso # (Auto) 0 (0-100) /uL Sodium 136 L (137-145) mmol/L Potassium 4.4 (3.4-5.1) mmol/L Chloride 99 (98-107) mmol/L Carbon Dioxide 27 (22-32) mmol/L BUN 13 (7-17) mg/dL Creatinine 0.70 (0.52-1.04) mg/dL Estimated GFR > 60.0 (>60) mL/min BUN/Creatinine Ratio 18.6 (6-22) Glucose 88 (70-100) mg/dL Calcium 9.5 (8.4-10.2) mg/dL Total Bilirubin 0.7 (0.2-1.3) mg/dL AST 31 (14-36) IU/L ALT 18 (<35) IU/L Alkaline Phosphatase 56 (38-126) U/L Total Protein 8.9 H (6.3-8.2) g/dL Albumin 5.0 (3.5-5.0) g/dL Globulin 3.9 (1.7-4.1) g/dL Albumin/Globulin Ratio 1.3 (1.0-2.8) Lipase 72 (23-300) U/L Urine RBC Cancelled Urine WBC Cancelled Ur Squamous Epith Cells Cancelled Ur Transition Epith Cell Cancelled Ur Renal Epithelial Cell Cancelled Calcium Oxalate Crystal Cancelled Uric Acid Crystals Cancelled Triple Phos Crystals Cancelled Other Crystals Cancelled Amorphous Sediment Cancelled Urine Bacteria Cancelled Hyaline Casts Cancelled Granular Casts Cancelled RBC Casts Cancelled WBC Casts Cancelled Other Casts Cancelled Urine Mucus Cancelled Urine Trichomonas Cancelled Urine Yeast Cancelled Urine Sperm Cancelled Ur Culture Indicated? Cancelled Micro UA Comment Cancelled Point of care testing: Urine Dip Bedside Urine Glucose Negative Bedside Urine Bilirubin - Negative Bedside Urine Ketone ++ 40 Urine Specific [place] 1.020 Bedside Urine Occult Blood - Negative Bedside Urine pH 6.0 Bedside Urine Protein - Negative Bedside Urine Urobilinogen - Negative Bedside Urine Nitrite - Negative Bedside Urine Leukocytes - Negative Esterase Imaging Data US - abdomen: Radiologist's Impression: [address] [address] Ultrasound Report Signed Patient: Shyanne Lima [facility]#: [id number] : 1970Acct:[id number] Age/Sex: 49 / FDate of Service: 08/19/19 Loc: ED Accession Number: [id number] Procedure: US abdomen limited Ordering Provider: Shaji Teague D.O. PROCEDURE: US ABDOMEN LIMITED INDICATIONS: EPIGASTRIC PAIN AFTER EATING TECHNIQUE: Real-time scanning was performed of the abdominal and retroperitoneal organs, with image documentation. COMPARISON: None. FINDINGS: Liver: Liver is normal in size and homogeneous in echotexture. Gallbladder: No gallstones. No gallbladder wall thickening, pericholecystic fluid or sonographic Sandhu's sign. Biliary ducts: Intrahepatic bile ducts are non-dilated. Extrahepatic bile duct caliber measures 4.9 mm. Normal is 6-7 mm or less in diameter, or 10 mm or less post-cholecystectomy. Pancreas: Visualized portions of the pancreas are sonographically normal. IMPRESSION: No ultrasound findings to explain epigastric pain. Dictated by: Fern Alberto M.D. on 08/19/2019 at 11:22 Approved by: Fern Alberto M.D. on 08/19/2019 at 11:24 CT scan - abdomen/pelvis: Radiologist's Impression: [place] [address] CT Scan Report Signed Patient: Shyanne Lima [facility]#: [id number] : 1970Acct:[id number] Age/Sex: 49 / FDate of Service: 08/19/19 Loc: ED Accession Number: [id number] Procedure: CT abdomen pelvis w con Ordering Provider: Shaji Teague D.O. PROCEDURE: CT ABDOMEN PELVIS W CON INDICATIONS: abdominal pain, airfluid on Xray TECHNIQUE: After the administration of oral and intravenous contrast, 5 mm thick sections acquired from the diaphragms to the symphysis. 5 mm thick coronal and sagittal reformats were performed. For radiation dose reduction, the following was used: automated exposure control, adjustment of mA and/or kV according to patient size. COMPARISON: None. FINDINGS: Image quality: Diagnostic. ABDOMEN: Lung bases: Lung bases are clear. Heart size is normal. Solid organs: There is a focal area of low attenuation evident involving the medial segment of the left hepatic lobe along the falciform ligament, which probably represents a focal area of fatty infiltration. Similar appearance is noted within the gallbladder fossa. A small rounded area of low attenuation involving the posterior segment of the right hepatic lobe near the inferior aspect of the liver (image 23, series 2) likely represents a simple cyst, but is not adequately characterized on this exam. The gallbladder is normal in size. There is no intrahepatic or extrahepatic biliary dilatation and a given the patient's age. The pancreas, adrenals, and spleen are within normal limits. The kidneys are normal in size. There is no hydronephrosis. No renal masses are appreciated. A small renal cyst on the left may be present (image 23, series 2). Peritoneum and bowel: There may be a very small hiatal hernia. There is moderate distention of the fundal portion of the stomach with fluid. The duodenum is unremarkable. The proximal small bowel loops demonstrate prominent wall thickening and marked distention with small bowel loops measuring up to approximately 3.6 cm in diameter. The more distal small bowel loops are normal in size. The exact transition point probably is within the right lower quadrant and or pelvis. Enhancement of the mucosa of the more distal small bowel loops is present. The colon is relatively decompressed. Sonog fluid is seen within the colon. A small amount of ascites is seen within the right paracolic gutter. There is no loculated fluid collection or free air. Nodes and vessels: No retroperitoneal or mesenteric adenopathy. Aorta and inferior vena cava are normal in caliber. Bones: No acute fracture or suspicious osseous lesion is evident. PELVIS: Genitourinary: Bladder wall thickness is normal. The uterus and ovaries are not adequately characterized on CT, but are not enlarged. Miscellaneous: No inguinal hernias or adenopathy. A small amount of free fluid is seen within the pelvis. There is no free air. Bones: No suspicious bony lesions. No acute pelvic fractures. IMPRESSION: 1. Small bowel obstruction with a transition point within the right lower quadrant/pelvis. Etiology is uncertain and could potentially be related to adhesions. No definite masses are appreciated. 2. Prominent thickening and enhancement of the wall of the small bowel is suggestive of enteritis. 3. Small amount of free fluid within the abdomen and pelvis is likely reactive. There is no abscess or free air. Dictated by: Tripp Grande M.D. on 08/19/2019 at 15:10 Approved by: Tripp Grande M.D. on 08/19/2019 at 15:17 Discharge Plan Departure Patient Disposition: Admitted As Inpatient Clinical Impression: Small bowel obstruction Discharge Date/Time: 08/19/19 16:49 Admit Date/Time: 08/19/19 16:41 Admit Provider: Nesha Jamil
[2019-08-19] MEDS: MAG HYDROX/ALUMINUM/SIMETH SUS 20 ML, LIDOCAINE VISCOUS 2% 15 ML PO (12:57)
--- NOTE | 2019-08-19 13:45 | DI.RAD.S_ITS ---
PROCEDURE: XR ACUTE ABDOMEN SERIES INDICATIONS: Abdominal pain, worsening, crampy TECHNIQUE: One view chest and two views of the abdomen were acquired. COMPARISON: None. FINDINGS: Surgical changes and devices: None. Chest: Lungs are clear. Heart size is normal. No pleural effusions. No pneumoperitoneum. Abdomen: A single dilated small bowel loop within the upper mid abdomen is identified that measures up to approximately 4.3 cm and appears to demonstrate wall thickening. Air-fluid levels within the upper abdomen are present. Air and stool are identified throughout the colon. A moderate amount of stool is seen within the colon. No suspicious calcifications. Visualized solid organ contours appear normal. Bones: No suspicious bony lesions. IMPRESSION: 1. Distended small bowel loops within the upper abdomen are concerning for a developing bowel obstruction. CT of the abdomen and pelvis with oral and intravenous contrast is recommended for further evaluation. 2. No acute cardiopulmonary process is evident. Dictated by: Tripp Grande M.D. on 08/19/2019 at 14:13 Approved by: Tripp Grande M.D. on 08/19/2019 at 14:16
--- NOTE | 2019-08-19 15:46 | DI.CT.S_ITS ---
PROCEDURE: CT ABDOMEN PELVIS W CON INDICATIONS: abdominal pain, airfluid on Xray TECHNIQUE: After the administration of oral and intravenous contrast, 5 mm thick sections acquired from the diaphragms to the symphysis. 5 mm thick coronal and sagittal reformats were performed. For radiation dose reduction, the following was used: automated exposure control, adjustment of mA and/or kV according to patient size. COMPARISON: None. FINDINGS: Image quality: Diagnostic. ABDOMEN: Lung bases: Lung bases are clear. Heart size is normal. Solid organs: There is a focal area of low attenuation evident involving the medial segment of the left hepatic lobe along the falciform ligament, which probably represents a focal area of fatty infiltration. Similar appearance is noted within the gallbladder fossa. A small rounded area of low attenuation involving the posterior segment of the right hepatic lobe near the inferior aspect of the liver (image 23, series 2) likely represents a simple cyst, but is not adequately characterized on this exam. The gallbladder is normal in size. There is no intrahepatic or extrahepatic biliary dilatation and a given the patient's age. The pancreas, adrenals, and spleen are within normal limits. The kidneys are normal in size. There is no hydronephrosis. No renal masses are appreciated. A small renal cyst on the left may be present (image 23, series 2). Peritoneum and bowel: There may be a very small hiatal hernia. There is moderate distention of the fundal portion of the stomach with fluid. The duodenum is unremarkable. The proximal small bowel loops demonstrate prominent wall thickening and marked distention with small bowel loops measuring up to approximately 3.6 cm in diameter. The more distal small bowel loops are normal in size. The exact transition point probably is within the right lower quadrant and or pelvis. Enhancement of the mucosa of the more distal small bowel loops is present. The colon is relatively decompressed. Sonog fluid is seen within the colon. A small amount of ascites is seen within the right paracolic gutter. There is no loculated fluid collection or free air. Nodes and vessels: No retroperitoneal or mesenteric adenopathy. Aorta and inferior vena cava are normal in caliber. Bones: No acute fracture or suspicious osseous lesion is evident. PELVIS: Genitourinary: Bladder wall thickness is normal. The uterus and ovaries are not adequately characterized on CT, but are not enlarged. Miscellaneous: No inguinal hernias or adenopathy. A small amount of free fluid is seen within the pelvis. There is no free air. Bones: No suspicious bony lesions. No acute pelvic fractures. IMPRESSION: 1. Small bowel obstruction with a transition point within the right lower quadrant/pelvis. Etiology is uncertain and could potentially be related to adhesions. No definite masses are appreciated. 2. Prominent thickening and enhancement of the wall of the small bowel is suggestive of enteritis. 3. Small amount of free fluid within the abdomen and pelvis is likely reactive. There is no abscess or free air. Dictated by: Tripp Grande M.D. on 08/19/2019 at 15:10 Approved by: Tripp Grande M.D. on 08/19/2019 at 15:17
--- NOTE | 2019-08-19 17:19 | PM.HP.1 ---
History of Present Illness History of Present Illness Date Patient Seen: 08/19/19 Chief complaint: abdominal pain Narrative: The patient is a 49-year-old female with a history of hypothyroidism who presents with abrupt onset of abdominal pain. Patient was in her usual state of health until last evening when she ate dinner. Following dinner she developed midepigastric pain which she describes as 7/10 in intensity. She had some nausea but no vomiting. Her pain has persisted all night coming and going in waves. This morning as she continued to have abdominal pain she induced vomiting. She noted that with the vomit she had undigested food from the night before. Because her pain was persistent she presented to the emergency room. She thought she may have a hiatal hernia. She did not have any reflux or acid indigestion. The patient was seen and evaluated in the emergency room. She was given a GI cocktail following which she developed more severe pain. She describes pain moving from her upper mid epigastric area to the middle of her belly. Pain is at times 7/10 but comes and goes. The patient underwent KUB which revealed dilated loops of bowel. She had a follow-up CT of the abdomen which revealed a small bowel obstruction with a transition point in the right lower quadrant. Patient does have a history of appendectomy in 1985. She is admitted to the hospital at this time for small-bowel obstruction. Laboratory studies in the emergency room have been unremarkable. Her white count is normal. Bicarbonate is normal. BUN and creatinine are normal. Patient History Medical History (Updated 08/19/19 @ 17:21 by Nesha Jamil MD) Hypothyroidism (Acute) Surgical History (Updated 08/19/19 @ 17:22 by Nesha Jamil MD) History of appendectomy (Acute) Family & Social History Family History (Updated 08/19/19 @ 17:23 by Nesha Jamil MD) Mother Diabetes mellitus Father History of ASCVD (arteriosclerotic cardiovascular disease) Social History: household members spouse Prior Living Arrangements House Safety & Behavioral: Feels Safe in Current Yes Environment Been Physically Hurt or No Threatened By a Person Suicidal Ideation Description None Suicide Plan Description No Plan Tobacco & Substance use: Smoking Status Never smoker alcohol intake frequency a few times a week Substance Use Type does not use Meds Home Medications and Allergies Home Medications Medication Instructions Recorded Confirmed Type Vitamin D3 1 cap PO DAILY 08/19/19 08/19/19 History multivitamin 1 tab PO DAILY 08/19/19 08/19/19 History thyroid (pork) [[place] Thyroid] 90 mg PO DAILY 08/19/19 08/19/19 History Allergies Allergy/AdvReac Type Severity Reaction Status Date / Time wheat [WHEAT] AdvReac Mild JOINT Unverified 11/19/17 12:08 INFLAMMATION Review of Systems Review of Systems Narrative: Patient reports intermittent chest pain. She has been evaluated for this by her physician. She had some minimal chest tightness earlier today which completely resolved ROS Unobtainable: All systems reviewed & are unremarkable except as noted in HPI and below Exam Vital Signs (past 8 hours): - 08/19/19 10:33 08/19/19 12:26 08/19/19 12:33 Temperature 97.8 F Pulse Rate 69 58 L 60 Respiratory Rate 14 16 16 Blood Pressure 139/83 Blood Pressure [Right Arm] 120/78 135/81 Pulse Oximetry 100 100 100 08/19/19 13:00 08/19/19 14:52 08/19/19 15:00 Temperature Pulse Rate 91 H 54 L Respiratory Rate Blood Pressure Blood Pressure [Right Arm] 120/85 106/93 H 111/65 Pulse Oximetry 100 99 100 Oxygen Delivery Method Room Air Narrative Exam Narrative: Pleasant female in no obvious distress HEENT: Normocephalic atraumatic, extraocular muscles are intact, oropharynx is clear, neck is supple without adenopathy Lungs: Clear to auscultation Cardiac exam: Regular rate rhythm normal S1-S2 Abdomen: Mildly distended, hypoactive bowel tones in the lower quadrants, hyperactive bowel tones in the upper quadrants, mild tenderness to palpation in the right lower quadrant, no palpable masses, no rebound tenderness, no board-like rigidity Lower extremities: No edema Skin exam: No lesion Neuro exam: Cranial nerves 2-12 are intact, strength is symmetric and equal, sensation is intact, reflexes are equal Psychiatric exam: Patient is awake alert and oriented, answers questions appropriately, no hallucinations or delusions Objective Labs Result Diagrams: 08/19/19 10:50 08/19/19 10:50 Labs: Laboratory Results - last 24 hr 08/19/19 08/19/19 08/19/19 10:50 10:50 10:50 WBC 4.8 RBC 4.67 Hgb 14.1 Hct 40.2 MCV 86.2 MCH 30.2 MCHC 35.1 RDW 14.3 Plt Count 331 Neut % (Auto) 66.9 Lymph % (Auto) 24.2 L [place] % (Auto) 7.3 Eos % (Auto) 1.2 L Baso % (Auto) 0.4 Neut # (Auto) 3200 Lymph # (Auto) 1200 [place] # (Auto) 300 Eos # (Auto) 100 Baso # (Auto) 0 Sodium 136 L Potassium 4.4 Chloride 99 Carbon Dioxide 27 BUN 13 Creatinine 0.70 Estimated GFR > 60.0 BUN/Creatinine Ratio 18.6 Glucose 88 Calcium 9.5 Total Bilirubin 0.7 AST 31 ALT 18 Alkaline Phosphatase 56 Total Protein 8.9 H Albumin 5.0 Globulin 3.9 Albumin/Globulin Ratio 1.3 Lipase 72 Urine RBC Cancelled Urine WBC Cancelled Ur Squamous Epith Cells Cancelled Ur Transition Epith Cell Cancelled Ur Renal Epithelial Cell Cancelled Calcium Oxalate Crystal Cancelled Uric Acid Crystals Cancelled Triple Phos Crystals Cancelled Other Crystals Cancelled Amorphous Sediment Cancelled Urine Bacteria Cancelled Hyaline Casts Cancelled Granular Casts Cancelled RBC Casts Cancelled WBC Casts Cancelled Other Casts Cancelled Urine Mucus Cancelled Urine Trichomonas Cancelled Urine Yeast Cancelled Urine Sperm Cancelled Ur Culture Indicated? Cancelled Micro UA Comment Cancelled Assessment & Plan Assessment & Plan narrative: Impression 1. 49-year-old female admitted to the hospital with abrupt onset of abdominal pain. CT findings demonstrate small-bowel obstruction -KUB and upright x-ray revealed the following Distended small bowel loops within the upper abdomen are concerning for a developing bowel obstruction. -CT SCAN OF THE ABDOMEN AND PELVIS REVEALING THE FOLLOWING: small bowel obstruction with a transition point within the right lower quadrant/pelvis. Etiology is uncertain and could potentially be related to adhesions. No definite masses are appreciated. 2. Prominent thickening and enhancement of the wall of the small bowel is suggestive of enteritis. 3. Small amount of free fluid within the abdomen and pelvis is likely reactive. There is no abscess or free air. -patient will be kept NPO -will start IV hydration -will start antiemetics -IV pain medication -consult general Surgery, Dr. Guillen, orders placed Hypothyroid -hold thyroid medication will NPO will resume once taking p.o. Patient is a full code will note that her record accordingly Quality VTE Deep Vein Thrombosis/Pulmonary Embolism Present on Admission: No
[2019-08-19] MEDS: ONDANSETRON 4 MG/2 ML INJ IV (18:34)
[2019-08-19] MEDS: KETOROLAC 15 MG/ML VIAL IV ×2 (18:37→23:33)
--- NOTE | 2019-08-19 19:35 | PC.NURSE ---
emesis approx 1830 pt had 100ml of light brown liquid emesis. medicated effectively with zofran. oral swabs and swish/spit mouthwash performed.
[2019-08-20] MEDS: SODIUM CHLORIDE 0.9% 1,000 ML 150 ML IV (01:08)
[2019-08-20 05:14] VITALS: BP 109/62; PULSE 80; RESP 18; TEMP 36.6; O2SAT 98
[2019-08-20 06:01] LABS: Add Manual Diff / Slide Review NO; Basophils Absolute Auto 0 /uL (0-100); Basophils Percent Auto 0.4 % (0-2); Eosinophils Absolute Auto 100 /uL (0-450); Eosinophils Percent Auto 1.3 % (2-4); Hematocrit 32.7 % (36-46); Lymphocytes Absolute Auto 1600 /uL (1100-4500); Lymphocytes Percent Auto 32.8 % (25-40); Mean Corpuscular HGB Conc 33.7 % (30-36); Mean Corpuscular Hemoglobin 29.4 PG (26-34); Mean Corpuscular Volume 87.4 fL (80-100); Monocytes Absolute Auto 400 /uL (0-900); Neutrophils Absolute Auto 2900 /uL (1500-7000); Neutrophils Percent Auto 57.5 % (50-75); Platelet Count 246 X10^3/uL (150-400); Red Blood Cell Count 3.74 X10^6/uL (4.0-5.2)
[2019-08-20] MEDS: KETOROLAC 15 MG/ML VIAL IV (06:07)
[2019-08-20 06:13] LABS: Blood Urea Nitrogen 16 mg/dL (7-17); Calcium 8.5 mg/dL (8.4-10.2); Carbon Dioxide 24 mmol/L (22-32); Chloride 107 mmol/L (98-107); Estimated Glomerular Filt Rate > 60.0 mL/min (>60); Glucose 59 mg/dL (70-100); HEMOLYSIS < 15 (0-50); Potassium 4.4 mmol/L (3.4-5.1); Sodium 138 mmol/L (137-145)
[2019-08-20] MEDS: DEXTROSE 50 % IN WATER 25 GM/50 ML SYRINGE IV (06:28)
--- NOTE | 2019-08-20 06:41 | PC.NURSE ---
Addendum entered by Susi Zavaleta R.N. 08/20/19 06:58: POC was 215. Original Note: After reviewing morning labs noted a serum blood glucose of 59, notified CHRIS White, new orders placed. Gave 25gm D50 per MAR. Will recheck at 0700 via POC.
--- NOTE | 2019-08-20 07:30 | DI.RAD.S_ITS ---
PROCEDURE: XR ACUTE ABDOMEN SERIES INDICATIONS: small bowel obstruction TECHNIQUE: One view chest and two views of the abdomen were acquired. COMPARISON: [facility], , XR ACUTE ABDOMEN SERIES, 08/19/2019, 13:41. FINDINGS: Surgical changes and devices: None. Chest: Lungs are clear. Heart size is normal. No pleural effusions. No pneumoperitoneum. Abdomen: Bowel gas pattern is normal. No suspicious calcifications. Visualized solid organ contours appear normal. Bones: No suspicious bony lesions. IMPRESSION: No evidence of bowel obstruction. No gross free air. No acute cardiopulmonary pathology. Dictated by: Jeremy Desai M.D. on 08/20/2019 at 9:53 Approved by: Jeremy Desai M.D. on 08/20/2019 at 9:53
[2019-08-20 08:00] VITALS: BP 99/64; PULSE 63; RESP 15; TEMP 36.2; O2SAT 100
[2019-08-20] MEDS: DEXTROSE 5%-0.9% NS 1,000 ML 150 ML IV (08:02)
[2019-08-20] MEDS: ENOXAPARIN 40 MG/0.4 ML SYRINGE SUBCUT (08:11)
--- NOTE | 2019-08-20 08:52 | P.CONS_ITS ---
History of Present Illness Consult details Date Patient Seen: 08/20/19 Time Patient Seen: 08:52 Chief complaint: abdominal pain Reason for consult: Possible bowel obstruction Narrative: 49-year-old white female patient comes to the emergency department yesterday evening with 1 day history of abdominal pain and vomiting with only 1 episode of emesis. She had a bowel movement yesterday morning which was normal. Abdominal series was done which shows some dilated loops of small bowel and also shows stool and gas in the colon. Follow-up CT was done which shows a transition point of the dilated small bowel in the right lower quadrant. There still is gas in the colon. At this moment the patient is asymptomatic no vomiting and no pain. Patient has had a right lower quadrant operation in the past which was an appendectomy. Meds Home Medications and Allergies Home Medications Medication Instructions Recorded Confirmed Type Vitamin D3 1 cap PO DAILY 08/19/19 08/19/19 History multivitamin 1 tab PO DAILY 08/19/19 08/19/19 History thyroid (pork) [[place] Thyroid] 90 mg PO DAILY 08/19/19 08/19/19 History Allergies Allergy/AdvReac Type Severity Reaction Status Date / Time wheat [WHEAT] AdvReac Mild JOINT Verified 08/20/19 08:20 INFLAMMATION Review of Systems Review of Systems ROS Unobtainable: All systems reviewed & are unremarkable except as noted in HPI and below Exam Vital Signs (past 8 hours): - 08/20/19 05:14 08/20/19 08:00 Temperature 97.8 F 97.1 F L Pulse Rate 80 63 Respiratory Rate 18 15 Blood Pressure 109/62 99/64 Pulse Oximetry 98 100 Oxygen Delivery Method Room Air Oxygen Flow Rate 0 Narrative Exam Narrative: The patient is alert and oriented and resting comfortably in bed. She denies any abdominal pain or nausea. Lungs are clear. Heart regular rhythm no murmur. Abdomen soft not distended. There is absolutely no abdominal tenderness. There are no masses. Objective Labs Result Diagrams: 08/20/19 05:10 08/20/19 05:10 Labs: Laboratory Results - last 24 hr 08/19/19 08/19/19 08/19/19 10:50 10:50 10:50 WBC 4.8 RBC 4.67 Hgb 14.1 Hct 40.2 MCV 86.2 MCH 30.2 MCHC 35.1 RDW 14.3 Plt Count 331 Neut % (Auto) 66.9 Lymph % (Auto) 24.2 L [place] % (Auto) 7.3 Eos % (Auto) 1.2 L Baso % (Auto) 0.4 Neut # (Auto) 3200 Lymph # (Auto) 1200 [place] # (Auto) 300 Eos # (Auto) 100 Baso # (Auto) 0 Sodium 136 L Potassium 4.4 Chloride 99 Carbon Dioxide 27 BUN 13 Creatinine 0.70 Estimated GFR > 60.0 BUN/Creatinine Ratio 18.6 Glucose 88 Calcium 9.5 Total Bilirubin 0.7 AST 31 ALT 18 Alkaline Phosphatase 56 Total Protein 8.9 H Albumin 5.0 Globulin 3.9 Albumin/Globulin Ratio 1.3 Lipase 72 Urine RBC Cancelled Urine WBC Cancelled Ur Squamous Epith Cells Cancelled Ur Transition Epith Cell Cancelled Ur Renal Epithelial Cell Cancelled Calcium Oxalate Crystal Cancelled Uric Acid Crystals Cancelled Triple Phos Crystals Cancelled Other Crystals Cancelled Amorphous Sediment Cancelled Urine Bacteria Cancelled Hyaline Casts Cancelled Granular Casts Cancelled RBC Casts Cancelled WBC Casts Cancelled Other Casts Cancelled Urine Mucus Cancelled Urine Trichomonas Cancelled Urine Yeast Cancelled Urine Sperm Cancelled Ur Culture Indicated? Cancelled Micro UA Comment Cancelled 08/20/19 08/20/19 05:10 05:10 WBC 5.0 RBC 3.74 L Hgb 11.0 L Hct 32.7 L MCV 87.4 MCH 29.4 MCHC 33.7 RDW 14.0 Plt Count 246 Neut % (Auto) 57.5 Lymph % (Auto) 32.8 [place] % (Auto) 8.0 Eos % (Auto) 1.3 L Baso % (Auto) 0.4 Neut # (Auto) 2900 Lymph # (Auto) 1600 [place] # (Auto) 400 Eos # (Auto) 100 Baso # (Auto) 0 Sodium 138 Potassium 4.4 Chloride 107 Carbon Dioxide 24 BUN 16 Creatinine 0.80 Estimated GFR > 60.0 BUN/Creatinine Ratio 20.0 Glucose 59 L Calcium 8.5 Total Bilirubin AST ALT Alkaline Phosphatase Total Protein Albumin Globulin Albumin/Globulin Ratio Lipase Urine RBC Urine WBC Ur Squamous Epith Cells Ur Transition Epith Cell Ur Renal Epithelial Cell Calcium Oxalate Crystal Uric Acid Crystals Triple Phos Crystals Other Crystals Amorphous Sediment Urine Bacteria Hyaline Casts Granular Casts RBC Casts WBC Casts Other Casts Urine Mucus Urine Trichomonas Urine Yeast Urine Sperm Ur Culture Indicated? Micro UA Comment Assessment & Plan Assessment & Plan narrative: At this point I doubt that the patient has a small- bowel obstruction. I do think that she probably had an episode of gastroenteritis. Follow-up x-ray that I ordered for early this morning has not yet been done. I will make another determination after viewing today's flat and upright x-ray of the abdomen. We are keeping the patient NPO and on IV fluids. I doubt that she will require surgical intervention of any kind.
[2019-08-20 12:00] VITALS: BP 107/65; PULSE 48; RESP 16; TEMP 36.4; O2SAT 100
[2019-08-20] MEDS: POLYETHYLENE GLYCOL 3350 17 GM POWD.PACK PO (12:52)
--- NOTE | 2019-08-20 13:51 | CM.IDA ---
Initial DCP Assessment Note: Pt is a 49 yo female, resident of [place]. Pt admitted under observation for suspected SBO, which now has been ruled out by Dr Araya and Dr Guillen, constipation suspected, so bowel regimen ordered for DC home w/close outpt f/u. No barriers to safe return home today w/spouse to assist as needed. Pt works at , [employer]. [employer]
--- NOTE | 2019-08-20 14:16 | P.DS_ITS ---
History of Present Illness History of Present Illness Date Patient Seen: 08/19/19 Chief complaint: abdominal pain Narrative: Written by Dr. Jamil: The patient is a 49-year-old female with a history of hypothyroidism who presents with abrupt onset of abdominal pain. Patient was in her usual state of health until last evening when she ate dinner. Following dinner she developed midepigastric pain which she describes as 7/10 in intensity. She had some nausea but no vomiting. Her pain has persisted all night coming and going in waves. This morning as she continued to have abdominal pain she induced vomiting. She noted that with the vomit she had undigested food from the night before. Because her pain was persistent she presented to the emergency room. She thought she may have a hiatal hernia. She did not have any reflux or acid indigestion. The patient was seen and evaluated in the emergency room. She was given a GI cocktail following which she developed more severe pain. She describes pain moving from her upper mid epigastric area to the middle of her belly. Pain is at times 7/10 but comes and goes. The patient underwent KUB which revealed dilated loops of bowel. She had a follow-up CT of the abdomen which revealed a small bowel obstruction with a transition point in the right lower quadrant. Patient does have a history of appendectomy in 1985. She is admitted to the hospital at this time for small-bowel obstruction. Laboratory studies in the emergency room have been unremarkable. Her white count is normal. Bicarbonate is normal. BUN and creatinine are normal. Discharge Providers Provider Date of admission: 08/19/19 16:41 Discharge Date: 08/20/19 Primary care physician: Becki Dickerson ND Consults: 08/19/19 17:18 Consult to General Surgery Routine Comment: Consulting Provider: Mickey Guillen Reason for consultation: SBO Has provider been notified: Yes Discharge provider: Lisa Araya DO Summary Hospital Course Discharge Diagnosis: 1. Acute enteritis, present on admission. Resolving. 2. Hypothyroidism, chronic, present on admission. Stable. Hospital Course: Shyanne Lima is a 49-year-old female with a past medical history significant for hypothyroidism who presented with abrupt onset abdominal pain with associated nausea and vomiting. 1. Acute enteritis, present on admission. Resolving. -KUB x-ray demonstrated distended small bowel loops within the upper abdomen are concerning for a developing bowel obstruction. -CT abdomen and pelvis with contrast demonstrated small bowel obstruction with a transition point within the right lower quadrant/pelvis, etiology is uncertain and could potentially be related to adhesions, no definite masses are appreci ated, prominent thickening and enhancement of the wall of the small bowel is suggestive of enteritis, small amount of free fluid within the abdomen and pelvis is likely reactive. There is no abscess or free air. -Patient was kept NPO until she was able to be evaluated by general surgery. -Consulted general surgery, Dr. Guillen, who performed repeat KUB x-ray which demonstrated no evidence of SBO. Recommended bowel regimen and advancing diet as tolerated. -continued supportive care with antiemetics, pain medication, and IV fluid hydration until adequately hydrated then discontinued. 2. Hypothyroidism, chronic, present on admission. Stable. -Continue [place] thyroid 90 mg daily. Exam Vital Signs (past 8 hours): - 08/20/19 08:00 08/20/19 12:00 Temperature 97.1 F L 97.5 F L Pulse Rate 63 48 L Respiratory Rate 15 16 Blood Pressure 99/64 107/65 Pulse Oximetry 100 100 Oxygen Delivery Method Room Air Oxygen Flow Rate 0 Narrative Exam Narrative: General: Middle-aged female sitting in bed and in no acute distress, well-developed, well-nourished, appropriately interactive. HEENT: Normocephalic, atraumatic. External ears without defect. Pupils equal, round, and reactive to light. Anicteric sclerae, moist conjunctivae, and no lid lag. Oropharynx free of erythema and cobble stoning with moist mucosa. Neck: Supple with full range of motion. No lymphadenopathy or thyromegaly. Cardiovascular: Regular rate and rhythm without murmurs, rubs, or gallops appreciated Pulmonary: Clear to auscultation bilaterally without crackles, wheezes, or rhonchi. Normal respiratory effort with no use of accessory muscles. Abdomen: Soft, bowel sounds present, mild tenderness to palpation in mid epigastrium otherwise nontender, nondistended. No hepatosplenomegaly or masses appreciated. Extremities: No clubbing, cyanosis, or edema. Skin: Normal temperature, turgor, and texture; no rash, ulcers, or subcutaneous nodules appreciated. Neurological: Cranial nerves grossly intact. Psychiatric: Normal mood and affect. Alert and oriented to person, place, and time. Objective Labs Result Diagrams: 08/20/19 05:10 08/20/19 05:10 Labs: Laboratory Results - last 24 hr 08/20/19 08/20/19 05:10 05:10 WBC 5.0 RBC 3.74 L Hgb 11.0 L Hct 32.7 L MCV 87.4 MCH 29.4 MCHC 33.7 RDW 14.0 Plt Count 246 Neut % (Auto) 57.5 Lymph % (Auto) 32.8 [place] % (Auto) 8.0 Eos % (Auto) 1.3 L Baso % (Auto) 0.4 Neut # (Auto) 2900 Lymph # (Auto) 1600 [place] # (Auto) 400 Eos # (Auto) 100 Baso # (Auto) 0 Sodium 138 Potassium 4.4 Chloride 107 Carbon Dioxide 24 BUN 16 Creatinine 0.80 Estimated GFR > 60.0 BUN/Creatinine Ratio 20.0 Glucose 59 L Calcium 8.5 Discharge Plan Discharge Plan Patient Disposition: Home Discharge comment: You're being discharged home. You likely had a viral gastroenteritis which is self-limited and will resolve on its own. Please try to stay well hydrated and get plenty of rest. Recommend bowel regimen for the next several days with stool softener and MiraLax titrated to effect. You've also been prescribed Zofran 4 mg every 6 hours as needed for nausea. Discharge orders & Medications Prescriptions: New ondansetron HCl [Zofran] 4 mg tablet 4 mg PO Q6H PRN (Reason: nausea and vomiting) Qty: 20 RF: 0 docusate sodium [Colace] 100 mg capsule 100 mg PO BID Qty: 60 RF: 0 polyethylene glycol 3350 [Miralax] 17 gram/dose powder 17 gram PO DAILY PRN (Reason: constipation) Qty: 119 RF: 0 Continued thyroid (pork) [[place] Thyroid] 90 mg tablet 90 mg PO DAILY RF: 0 multivitamin Tablet 1 tab PO DAILY RF: 0 Vitamin D3 1 cap PO DAILY RF: 0 Follow up/Referrals: Becki Dickerson ND [Primary Care Provider] - 3-5 Days Diet/Activity/Treatments Diet: Diet as Tolerated Diet comment: Start with clear liquids and slowly advance Activity: Activity as tolerated Visit Report/Discharge Packet Instructions: DI for Enteritis Discharge Data Primary Care Provider: Becki Dickerson Attending Provider: Jamil,Nesha Admit Date/Time: 08/19/19 16:41 Quality VTE Deep Vein Thrombosis/Pulmonary Embolism Present on Admission: No
--- NOTE | 2019-08-20 15:05 | PC.NURSE ---
Pending discharge: Pt seen by and received her discharge instructions. Reviewed d/c packet with pt and spouse. Questions answered. Pt getting dressed to go home.
--- NOTE | 2019-08-20 15:28 | CM.MNRNOTE ---
Discharge: Pt feels ready to d/c home. D/c instructions reviewed. Spouse present at time of teaching. Questions answered. Pt d/c home via auto w/spouse.
--- NOTE | 2019-08-31 11:15 | PC.NURSE ---
Late entry: Dextrose/Sodium Chloride stopped 08/20/191499
== END 2019-08-20 15:20 | disposition home or self-care (01) ==
LOC: ED 16:31 → AC 16:42
PROVIDERS: Admitting Provider Internal Medicine; Emergency Provider Emergency Medicine; PCP Naturopath; Visit Provider Internal Medicine
DX: R93.3 Abnormal findings on diagnostic imaging of other parts of digestive tract (principal); R10.9 Unspecified abdominal pain; R11.10 Vomiting, unspecified; E03.9 Hypothyroidism, unspecified
CPT/HCPCS: 36415; 74022; 74177; 76705; 80048; 80053; 81003; 82962; 83690; 85025; 93005; 96361; 96372; 96374; 99225; 99285; G0378; J1650; J1885; J2405; Q9967

== ENCOUNTER → 2019-09-03 10:50 | Outpatient (CLI) | payer OTHER, SELFPAY ==
[2019-08-19 16:54] VITALS: BMI 20.3
[2019-09-03 12:19] LABS: Thyroid Stimulating Hormone 1.27 uIU/mL (0.47-4.68)
== END ==
PROVIDERS: PCP Naturopath; Visit Provider Naturopath
DX: E06.3 Autoimmune thyroiditis (principal)
CPT/HCPCS: 36415; 84443

== ENCOUNTER → 2020-03-17 09:00 | Outpatient (CLI) | payer OTHER, SELFPAY ==
[2019-08-19 16:54] VITALS: BMI 20.3
--- NOTE | 2020-03-17 | DI.MG.S_ITS ---
BILATERAL DIGITAL SCREENING MAMMOGRAM 3D/2D WITH CAD: 03/17/2020 CLINICAL: Routine screening. Comparison is made to exams dated: 05/31/2015 mammogram, 12/15/2013 mammogram, and 03/03/2008 mammogram - [facility]. The tissue of both breasts is heterogeneously dense. This may lower the sensitivity of mammography. Current study was also evaluated with a Computer Aided Detection (CAD) system. No significant masses, calcifications, or other findings are seen in either breast. There has been no significant interval change. IMPRESSION: NEGATIVE There is no mammographic evidence of malignancy. A 1 year screening mammogram is recommended. This exam was interpreted at Station ID: [id number]. NOTE: For mammograms, a report in lay terms will be sent to the patient. Approximately 15% of breast malignancies will not be visualized mammographically. In the management of a palpable breast mass, a negative mammogram must not discourage biopsy of a clinically suspicious lesion. Electronically Signed By: Sage [email or web address]/zac:03/17/2020 10:30:34 letter sent: Normal Exam ACR BI-RADS Category 1: Negative [id number]
== END ==
PROVIDERS: PCP Naturopath; Referring Provider Naturopath; Visit Provider Naturopath
DX: Z12.31 Encounter for screening mammogram for malignant neoplasm of breast (principal)
CPT/HCPCS: 77063; 77067

== ENCOUNTER → 2020-05-23 13:23 | Outpatient (CLI) | payer OTHER, SELFPAY ==
[2019-08-19 16:54] VITALS: BMI 20.3
[2020-05-24 06:47] LABS: COVID19 Sendout Not Detected (Not Detect)
== END ==
PROVIDERS: PCP Naturopath; Visit Provider Physician Assistant
DX: Z01.812 Encounter for preprocedural laboratory examination (principal)
CPT/HCPCS: 87635

== ENCOUNTER 2020-05-26 12:51 | Day surgery (SDC) | payer OTHER, SELFPAY ==
[2019-08-19 16:54] VITALS: BMI 20.3
--- NOTE | 2020-05-26 12:35 | PM.HP.1 ---
History of Present Illness History of Present Illness Date Patient Seen: 05/26/20 Chief complaint: [facility] [place] Narrative: 49 Years Old Female seen today for consideration of a screening colonoscopy. There have been no lower GI symptoms suggesting disease such as change in bowel habits, bleeding, abdominal pain or anemia. There's been no family history of colon cancer or colon polyps. Overall health issues have been stable, including no major cardiac events for at least 6 weeks. Current Medications 1) Estriol 1mg Deanna .... Insert one deanna nightly for two weeks then 2-3 times a week 2) [place] Thyroid 90 Mg Oral Tablet (Thyroid) .... Take 1 tablet daily on an empty stomach. 3) Vitamin D 1000 Unit Caps (Cholecalciferol) .... 5000 IU Take one by mouth every other day Allergies No Known Drug Allergies Past Medical History: Vaginal atrophy DYSPAREUNIA Knee joint pain, right TENDONITIS, EPICONDYLE, RIGHT LATERAL Bony abnormality MASS, BREAST HYPOTHYROIDISM VITAMIN D DEFICIENCY Past Surgical History: Reviewed history from 05/13/2014 and no changes required: Appendectomy (1986) [place] teeth Family History: Reviewed history from 05/13/2014 and no changes required: Father: Heart Disease, Hypertension Mother: Stroke, Diabetes, Hypertension, Hyperlipidemia Siblings: Heart Disease Social History: Reviewed history from 02/22/2020 and no changes required: Marital Status: - Gerry (1962) - 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[employer] Education: Master's Degree Patient History Medical History (System 04/21/20 @ 08:02 by Tarsha Wolfe) Hypothyroidism (Acute) Surgical History (System 04/21/20 @ 08:02 by Tarsha Wolfe) History of appendectomy (Acute) Family & Social History Family History (System 04/21/20 @ 08:02 by Tarsha Wolfe) Mother Diabetes mellitus Father History of ASCVD (arteriosclerotic cardiovascular disease) Social History: household members spouse Tobacco & Substance use: Smoking Status Never smoker alcohol intake frequency a few times a week Substance Use Type does not use Meds Home Medications and Allergies Home Medications Medication Instructions Recorded Confirmed Type Vitamin D3 1 cap PO DAILY 08/19/19 05/26/20 History multivitamin 1 tab PO DAILY 08/19/19 05/26/20 History thyroid (pork) [[place] Thyroid] 90 mg PO DAILY 08/19/19 05/26/20 History docusate sodium [Colace] 100 mg PO BID #60 cap 08/20/19 05/26/20 Rx Allergies Allergy/AdvReac Type Severity Reaction Status Date / Time wheat [WHEAT] AdvReac Mild JOINT Verified 05/26/20 13:29 INFLAMMATION Review of Systems Review of Systems ROS: Yes All systems reviewed with the patient and are negative except as otherwise documented Exam Narrative Exam Narrative: GENERAL: Alert and oriented, appearing stated age and in no acute distress. HEENT: Head normocephalic/atraumatic. Pupils equal, round, and reactive to light and accomodation. Extraocular muscles intact. Tympanic membranes clear. Nasal mucosa moist, septum midline. Oral mucosa moist, no lesions. Neck soft and supple, no lymphadenopathy. LUNGS: Clear to ausculation bilaterally, no wheezes, rhonchi or rales. CV: Normal S1 and S2 with regular rate and rhythm, no audible murmurs, rubs or gallops. ABDOMEN: Soft, non-tender, non-distended, no organomegaly. Positive bowel sounds. EXTREMITIES: No clubbing, cyanosis, or edema. NEURO: Cranial nerves II through XII grossly intact, no focal deficits. PSYCH: Alert and oriented x 3. SKIN: No concerning lesions. Assessment & Plan Assessment & Plan narrative: 1. Screening for colon cancer Plan for colonoscopy. The nature and character of the procedure as well as anticipated results were discussed. The possibility of not completing the procedure was also discussed. Possible complications including aspiration pneumonia, bleeding, perforation and reaction to medications either for sedation or preparation and missed lesions were discussed. Questions were answered and proceeding to the colonoscopy was elected. Informed consent signed. I sincerely appreciate the referral allowing me to participate in this patient's care. Please contact me with any questions or concerns.
--- NOTE | 2020-05-26 12:36 | PM.OP.ENDO ---
Operative Date/Time/Diagnoses Date of procedure: 05/26/20 Procedure Notes Procedure in detail: ENDOSCOPIST: Ana Townsend MD Sedation RN: Payton Stein RN Sedation start time: 2:09 p.m. Sedation end time: 2:46 p.m. PROCEDURE: Colonoscopy INDICATIONS: 1. Screening for colon cancer MEDICATION: Levsin 0.125 mg sublingual, incremental doses of Versed and fentanyl until appropriate level sedation achieved. ASA CLASS: 2 CECAL WITHDRAWAL TIME: 6 minutes COMPLICATIONS: None. EXTENT OF PROCEDURE: Cecum. QUALITY OF PREP: Good with portions of liquid stool. PROCEDURE: Prior to insertion of the colonoscope, a digital rectal examination was accomplished with circumferential palpation of the distal rectal mucosa without significant findings being noted. The high-definition colonoscope was passed into the rectum in the usual fashion and advanced over to the cecum without difficulty. The ileocecal valve, appendiceal stoma, and medial wall all could be inspected and no abnormalities were seen. ASCENDING COLON: As the colonoscope was withdrawn, care was taken to expose and inspect the haustral folds and no abnormalities were seen. HEPATIC FLEXURE: Normal, no polyps, diverticula or other abnormalities. TRANSVERSE COLON: Normal, no polyps, diverticula or other abnormalities. DESCENDING COLON: Normal, no polyps, diverticula or other abnormalities. SIGMOID COLON: Normal, no polyps, diverticula or other abnormalities. RECTUM: Normal. J maneuver was produced. There was no significant perianal disease. The J maneuver was broken. The remainder of the rectum was inspected and there was minor external hemorrhoid disease. The scope was withdrawn. IMPRESSION: 1. Normal colonoscopy 2. Minor external hemorrhoid disease PLAN: 1. Repeat colonoscopy in 10 years. The possibility of a missed lesion including a malignancy has been discussed with the patient previously. Potential alarm symptoms have been discussed and should be reported immediately.
[2020-05-26] MEDS: LACTATED RINGERS 1,000 ML 200 ML IV (13:20)
[2020-05-26] MEDS: HYOSCYAMINE 0.125 MG TABLET PO (13:20)
[2020-05-26 13:21] VITALS: BP 115/81; PULSE 67; RESP 18; TEMP 36.8; O2SAT 100; BMI 21.9
[2020-05-26] MEDS: fentaNYL 250 MCG/5 ML INJ IV (14:09)
[2020-05-26] MEDS: MIDAZOLAM 5 MG/5 ML VIAL IV (14:09)
[2020-05-26 14:30] VITALS: BP 113/78; PULSE 62; RESP 14; TEMP 36.6; O2SAT 98
[2020-05-26 14:35] VITALS: BP 100/64; PULSE 66; RESP 16; O2SAT 99
[2020-05-26 14:41] VITALS: BP 104/78; PULSE 73; RESP 15; TEMP 36.7; O2SAT 98
[2020-05-26 14:48] VITALS: BP 105/69; PULSE 60; RESP 15; TEMP 36.6; O2SAT 98
[2020-05-26 15:27] VITALS: BP 94/66; PULSE 57; RESP 16; TEMP 36.7; O2SAT 100
--- NOTE | 2020-05-26 15:34 | SUR.PHASEII ---
Discharged patient in stable condition with all belongings returned. Patient denies pain or nausea and has a steady gait.
== END 2020-05-26 15:35 | disposition home or self-care (01) ==
PROVIDERS: PCP Naturopath; Referring Provider Naturopath; Visit Provider Student in an Organized Health Care Education/Training Program
PROC: 0DJD8ZZ Inspection of Lower Intestinal Tract, Via Natural or Artificial Opening Endoscopic (ICD-10-PCS; CPT 45378; principal; 2020-05-26 13:45)
DX: Z12.11 Encounter for screening for malignant neoplasm of colon (principal); K64.4 Residual hemorrhoidal skin tags
CPT/HCPCS: 45378; J2250; J3010

== ENCOUNTER → 2020-07-22 08:38 | Outpatient (CLI) | payer OTHER, SELFPAY ==
[2019-08-19 16:54] VITALS: BMI 20.3
[2020-07-22 10:41] LABS: Alanine Aminotransferase 20 IU/L (<35); Albumin 4.6 g/dL (3.5-5.0); Albumin Globulin Ratio 1.2 (1.0-2.8); Alkaline Phosphatase 55 U/L (38-126); Aspartate Aminotransferase 37 IU/L (14-36); BUN Creatinine Ratio 20.8 (6-22); Bilirubin Total 0.5 mg/dL (0.2-1.3); Blood Urea Nitrogen 16 mg/dL (7-17); Calcium 9.3 mg/dL (8.4-10.2); Carbon Dioxide 33 mmol/L (22-32); Chloride 103 mmol/L (98-107); Cholesterol 252 mg/dL (140-199); Estimated Glomerular Filt Rate > 60.0 mL/min (>60); Globulin 3.7 g/dL (1.7-4.1); Glucose 81 mg/dL (70-100); HDL Cholesterol 89 mg/dL (40-60); HEMOLYSIS < 15 (0-50); LDL Cholesterol Calculated 152 mg/dL (<100); Potassium 4.1 mmol/L (3.4-5.1); Sodium 138 mmol/L (137-145); Total Protein 8.3 g/dL (6.3-8.2); Triglycerides 55 mg/dL (35-150)
[2020-07-22 11:17] LABS: Thyroid Stimulating Hormone 7.66 uIU/mL (0.47-4.68)
[2020-07-22 11:52] LABS: Free T3, Triiodothyronine Free 3.45 pg/mL (2.77-5.27); Free T4, Direct Thyroxine 0.54 ng/dL (0.78-2.19)
[2020-07-24 00:09] LABS: Thyroid Peroxidase Antibodies 256 IU/mL (0-34)
== END ==
PROVIDERS: PCP Naturopath; Referring Provider Naturopath; Visit Provider Naturopath
DX: Z00.00 Encounter for general adult medical examination without abnormal findings (principal); E06.3 Autoimmune thyroiditis; E78.5 Hyperlipidemia, unspecified
CPT/HCPCS: 36415; 80053; 80061; 84439; 84443; 84481; 86376

== ENCOUNTER → 2020-12-01 07:21 | Outpatient (CLI) | payer OTHER, SELFPAY ==
[2019-08-19 16:54] VITALS: BMI 20.3
[2020-12-01 08:41] LABS: Add Manual Diff / Slide Review NO; Basophils Absolute Auto 0 /uL (0-100); Basophils Percent Auto 0.6 % (0-2); Eosinophils Absolute Auto 100 /uL (0-450); Eosinophils Percent Auto 3.4 % (2-4); Hemoglobin 11.8 g/dL (12.0-16.0); Lymphocytes Absolute Auto 1200 /uL (1100-4500); Lymphocytes Percent Auto 47.9 % (25-40); Mean Corpuscular HGB Conc 33.7 % (30-36); Mean Corpuscular Hemoglobin 29.4 PG (26-34); Mean Corpuscular Volume 87.1 fL (80-100); Monocytes Absolute Auto 100 /uL (0-900); Monocytes Percent Auto 5.9 % (3-14); Neutrophils Absolute Auto 1000 /uL (1500-7000); Neutrophils Percent Auto 42.2 % (50-75); Platelet Count 225 X10^3/uL (150-400); Red Blood Cell Count 4.01 X10^6/uL (4.0-5.2); Red Cell Distribution Width 13.9 % (11.6-14.8); White Blood Cell Count 2.4 X10^3/uL (4.5-11.0)
[2020-12-01 09:38] LABS: Alanine Aminotransferase 33 IU/L (<35); Albumin 4.6 g/dL (3.5-5.0); Albumin Globulin Ratio 1.4 (1.0-2.8); Alkaline Phosphatase 53 U/L (38-126); Aspartate Aminotransferase 38 IU/L (14-36); BUN Creatinine Ratio 20.2 (6-22); Bilirubin Total 0.3 mg/dL (0.2-1.3); Blood Urea Nitrogen 17 mg/dL (7-17); Carbon Dioxide 30 mmol/L (22-32); Chloride 102 mmol/L (98-107); Estimated Glomerular Filt Rate > 60.0 mL/min (>60); Globulin 3.4 g/dL (1.7-4.1); Glucose 88 mg/dL (70-100); HEMOLYSIS < 15 (0-50); Potassium 4.5 mmol/L (3.4-5.1); Sodium 140 mmol/L (137-145)
[2020-12-01 09:41] LABS: High Sensitivity CRP - Cardiac 0.4 mg/L (1.0-3.0)
[2020-12-01 09:55] LABS: Free T4, Direct Thyroxine 0.58 ng/dL (0.78-2.19)
[2020-12-01 09:56] LABS: Vitamin D 25 Hydroxy (D3) 41.6 ng/mL (30.0-100.0)
[2020-12-01 10:09] LABS: Thyroid Stimulating Hormone 6.45 uIU/mL (0.47-4.68)
[2020-12-01 10:13] LABS: Ferritin 21 ng/mL (11-264)
[2020-12-01 13:58] LABS: HEMOLYSIS < 15 (0-50); Iron 62 ug/dL (37-170)
[2020-12-01 14:10] LABS: Percent Iron Saturation 21 % (15-50); Total Iron Binding Capacity 291 ug/dL (265-497); Transferrin 254 mg/dL (206-381)
[2020-12-01 17:37] LABS: Free T3, Triiodothyronine Free 2.62 pg/mL (2.77-5.27)
[2020-12-02 09:32] LABS: Thyroid Peroxidase Antibodies 232 IU/mL (0-34); Triiodothyronine T3 Total 82 ng/dL (71-180)
[2020-12-02 18:52] LABS: Deamidated Gliadin Ab IgA 2 units (0-19); Deamidated Gliadin Ab IgG 1 units (0-19); Immunoglobulin A,Qn <5 mg/dL (87-352); t-Transglutaminase IgA <2 U/mL (0-3)
[2020-12-02 22:12] LABS: Anti Thyroglobulin Antibody 13.4 IU/mL (0.0-0.9)
[2020-12-03 02:08] LABS: Zinc 89 ug/dL (44-115)
[2020-12-04 11:09] LABS: Selenium 135 ug/L (93-198)
[2020-12-04 16:37] LABS: Cadmium, Blood None Detected ug/L (0.0-1.2); Lead, Blood < 1 ug/dL (0-4)
[2020-12-06 21:52] LABS: 18 kD IgG Band Absent (.); 23 kD IgG Band Absent (.); 28 kD IgG Band Absent (.); 30 kD IgG Band Absent (.); 39 kD IgG Band Absent (.); 41 kD IgG Bands Present (.); 45 kD IgG Band Absent (.); 58 kD IgG Band Absent (.); 66 kD IgG Band Absent (.); IgG P93 AB Absent (.); IgM P23 AB Absent (.); IgM P39 AB Absent (.); IgM P41 AB Absent (.); Lyme IgG Line Blot Interpretat Negative (.); Lyme IgM Line Blot Interpretat Negative (.)
[2020-12-08 09:14] LABS: Triiodothyronine T3 Reverse 6.4 ng/dL (9.2-24.1)
== END ==
PROVIDERS: PCP Naturopath; Referring Provider Family Medicine; Visit Provider Family Medicine
DX: M25.562 Pain in left knee (principal); E63.9 Nutritional deficiency, unspecified; E06.3 Autoimmune thyroiditis; M99.08 Segmental and somatic dysfunction of rib cage; M99.06 Segmental and somatic dysfunction of lower extremity; M99.01 Segmental and somatic dysfunction of cervical region
CPT/HCPCS: 36415; 80053; 82175; 82300; 82306; 82525; 82728; 82784; 83516; 83540; 83550; 83655; 83825; 84255; 84439; 84443; 84480; 84481; 84482; 84630; 85025; 86140; 86376; 86617; 86644; 86645; 86665; 86800

== ENCOUNTER → 2020-12-02 12:22 | Outpatient (CLI) | payer OTHER, SELFPAY ==
[2019-08-19 16:54] VITALS: BMI 20.3
[2020-12-02 13:45] LABS: HEMOLYSIS < 15 (0-50); Iron 86 ug/dL (37-170)
[2020-12-02 13:56] LABS: Percent Iron Saturation 30 % (15-50); Total Iron Binding Capacity 283 ug/dL (265-497); Transferrin 243 mg/dL (206-381)
== END ==
PROVIDERS: PCP Naturopath; Referring Provider Family Medicine; Visit Provider Family Medicine
DX: D64.9 Anemia, unspecified (principal)
CPT/HCPCS: 36415; 83540; 83550; 83789

== ENCOUNTER → 2020-12-04 16:12 | Outpatient (CLI) | payer OTHER, SELFPAY ==
[2019-08-19 16:54] VITALS: BMI 20.3
[2020-12-04 19:26] LABS: Occult Blood 1 Positive (Negative)
== END ==
PROVIDERS: PCP Naturopath; Referring Provider Family Medicine; Visit Provider Family Medicine
DX: D64.9 Anemia, unspecified (principal)
CPT/HCPCS: 82270

== ENCOUNTER → 2020-12-08 11:01 | Outpatient (CLI) | payer OTHER, SELFPAY ==
[2019-08-19 16:54] VITALS: BMI 20.3
[2020-12-08 11:14] LABS: Bacteria Urine None Seen; RBC Urine None Seen (0-5/HPF); WBC Urine None Seen (0-5/HPF)
[2020-12-08 11:29] LABS: Appearance Urine UA CLEAR; Bilirubin Urine UA NEGATIVE (NEGATIVE); Color Urine UA YELLOW; Glucose Urine UA NEGATIVE (Negative); Ketones Urine UA NEGATIVE (NEGATIVE); Leukocyte Esterase Urine UA NEGATIVE (NEGATIVE); Nitrite Urine UA NEGATIVE (Negative); Occult Blood Urine UA NEGATIVE (Negative); Protein Urine UA NEGATIVE (Negative); Urobilinogen Urine UA 0.2 E.U./dL (0.2); pH Urine UA 6.5 (4.5-8.0)
[2020-12-08 11:37] LABS: Culture Indicated Urine Cult Not Indicated; Urine Comments Microscopic Normal
== END ==
PROVIDERS: PCP Naturopath; Referring Provider Family Medicine; Visit Provider Family Medicine
DX: D64.9 Anemia, unspecified (principal)
CPT/HCPCS: 81001

== ENCOUNTER → 2021-02-02 06:57 | Outpatient (CLI) | payer OTHER, SELFPAY ==
[2019-08-19 16:54] VITALS: BMI 20.3
[2021-02-02 08:49] LABS: Progesterone, Total 0.88 ng/mL
[2021-02-03 06:35] LABS: Sex Hormone Binding Globulin 82.9 nmol/L (17.3-125.0)
[2021-02-08 08:06] LABS: Percent Free Testosterone 1.25 % (0.50-2.80); Testosterone Free 0.17 ng/dL (0.10-0.85); Testosterone Total 13.5 ng/dL (.)
== END ==
PROVIDERS: PCP Naturopath; Referring Provider Family Medicine; Visit Provider Family Medicine
DX: E06.3 Autoimmune thyroiditis (principal); D64.9 Anemia, unspecified; E63.9 Nutritional deficiency, unspecified; R74.8 Abnormal levels of other serum enzymes; R23.2 Flushing; N95.9 Unspecified menopausal and perimenopausal disorder
CPT/HCPCS: 36415; 82306; 82627; 82670; 84144; 84270; 84402; 84403

== ENCOUNTER → 2021-04-25 15:24 | Outpatient (CLI) | payer OTHER, SELFPAY ==
[2019-08-19 16:54] VITALS: BMI 20.3
--- NOTE | 2021-04-25 15:25 | DI.MG.S_ITS ---
BILATERAL DIGITAL SCREENING MAMMOGRAM 3D/2D WITH CAD: 04/25/2021 CLINICAL: Routine screening. Comparison is made to exams dated: 03/17/2020 mammogram, 05/31/2015 mammogram, 01/04/2016 mammogram, and 12/15/2013 mammogram - [facility]. The tissue of both breasts is extremely dense, which lowers the sensitivity of mammography. Current study was also evaluated with a Computer Aided Detection (CAD) system. There is a stable benign focal asymmetry in the right breast. No significant masses, calcifications, or other findings are seen in either breast. There has been no significant interval change. IMPRESSION: BENIGN There is no mammographic evidence of malignancy. A 1 year screening mammogram is recommended. This exam was interpreted at Station ID: [id number]. NOTE: For mammograms, a report in lay terms will be sent to the patient. Approximately 15% of breast malignancies will not be visualized mammographically. In the management of a palpable breast mass, a negative mammogram must not discourage biopsy of a clinically suspicious lesion. Electronically Signed By: Franco Nolen acr/penrad:04/25/2021 19:03:16 letter sent: Normal Exam ACR BI-RADS Category 2: Benign Finding(s) [id number]
== END ==
PROVIDERS: PCP Naturopath; Referring Provider Naturopath; Visit Provider Naturopath
DX: Z12.31 Encounter for screening mammogram for malignant neoplasm of breast (principal)
CPT/HCPCS: 77063; 77067

== ENCOUNTER → 2021-06-29 15:39 | Outpatient (CLI) | payer OTHER, SELFPAY ==
[2019-08-19 16:54] VITALS: BMI 20.3
[2021-06-29] MEDS: COVID-19 VACC #3, MRNA(MOD) 50 MCG/0.25 ML VIAL IM (15:46)
== END ==
PROVIDERS: PCP Naturopath; Visit Provider Internal Medicine
DX: Z23 Encounter for immunization (principal)
CPT/HCPCS: 0013A; 91301

== ENCOUNTER → 2021-07-13 12:40 | Outpatient (CLI) | payer OTHER, SELFPAY ==
[2019-08-19 16:54] VITALS: BMI 20.3
== END ==
PROVIDERS: PCP Naturopath; Referring Provider Internal Medicine; Visit Provider Internal Medicine
DX: Z23 Encounter for immunization (principal)
CPT/HCPCS: 90471; 90686

== ENCOUNTER → 2021-08-29 07:53 | Outpatient (CLI) | payer OTHER, SELFPAY ==
[2019-08-19 16:54] VITALS: BMI 20.3
[2021-08-29 10:07] LABS: Add Manual Diff / Slide Review NO; Basophils Absolute Auto 0 /uL (0-100); Basophils Percent Auto 0.6 % (0-2); Eosinophils Absolute Auto 100 /uL (0-450); Eosinophils Percent Auto 3.2 % (2-4); Hematocrit 35.9 % (36-46); Hemoglobin 11.9 g/dL (12.0-16.0); Lymphocytes Absolute Auto 1300 /uL (1100-4500); Lymphocytes Percent Auto 51.5 % (25-40); Mean Corpuscular HGB Conc 33.2 % (30-36); Mean Corpuscular Hemoglobin 28.7 PG (26-34); Mean Corpuscular Volume 86.2 fL (80-100); Monocytes Absolute Auto 200 /uL (0-900); Monocytes Percent Auto 7.6 % (3-14); Neutrophils Absolute Auto 1000 /uL (1500-7000); Neutrophils Percent Auto 37.1 % (50-75); Platelet Count 229 X10^3/uL (150-400); Red Blood Cell Count 4.17 X10^6/uL (4.0-5.2); Red Cell Distribution Width 13.2 % (11.6-14.8); White Blood Cell Count 2.6 X10^3/uL (4.5-11.0)
[2021-08-29 10:37] LABS: Alanine Aminotransferase 16 IU/L (<35); Albumin 4.4 g/dL (3.5-5.0); Albumin Globulin Ratio 1.5 (1.0-2.8); Alkaline Phosphatase 36 U/L (38-126); Aspartate Aminotransferase 28 IU/L (14-36); BUN Creatinine Ratio 23.8 (6-22); Bilirubin Total 0.3 mg/dL (0.2-1.3); Blood Urea Nitrogen 20 mg/dL (7-17); Calcium 9.4 mg/dL (8.4-10.2); Carbon Dioxide 29 mmol/L (22-32); Chloride 104 mmol/L (98-107); Cholesterol 253 mg/dL (140-199); Estimated Glomerular Filt Rate > 60.0 mL/min (>60); Glucose 72 mg/dL (70-100); HDL Cholesterol 82 mg/dL (40-60); HEMOLYSIS < 15 (0-50); LDL Cholesterol Calculated 158 mg/dL (<100); Potassium 4.3 mmol/L (3.4-5.1); Sodium 136 mmol/L (137-145); Total Protein 7.4 g/dL (6.3-8.2); Triglycerides 65 mg/dL (35-150)
[2021-08-29 11:06] LABS: Free T3, Triiodothyronine Free 3.16 pg/mL (2.77-5.27); Free T4, Direct Thyroxine 0.57 ng/dL (0.78-2.19)
[2021-08-29 11:20] LABS: Thyroid Stimulating Hormone 7.55 uIU/mL (0.47-4.68)
[2021-08-30 00:10] LABS: Thyroid Peroxidase Antibodies 232 IU/mL (0-34)
== END ==
PROVIDERS: PCP Naturopath; Referring Provider Naturopath; Visit Provider Naturopath
DX: Z00.00 Encounter for general adult medical examination without abnormal findings (principal); E06.3 Autoimmune thyroiditis
CPT/HCPCS: 36415; 80053; 80061; 84439; 84443; 84481; 85025; 86376

== ENCOUNTER → 2022-05-21 07:48 | Outpatient (CLI) | payer OTHER, SELFPAY ==
[2019-08-19 16:54] VITALS: BMI 20.3
[2022-05-21 09:33] LABS: C-Reactive Protein Quant < 0.5 mg/dL (<1.0); Cholesterol 218 mg/dL (140-199); HDL Cholesterol 76 mg/dL (40-60); LDL Cholesterol Calculated 128 mg/dL (<100); Triglycerides 70 mg/dL (35-150)
[2022-05-21 09:44] LABS: Free T3, Triiodothyronine Free 5.44 pg/mL (2.77-5.27)
[2022-05-21 09:45] LABS: Rheumatoid Factor < 8.6 IU/mL (<12.0)
[2022-05-21 09:58] LABS: Thyroid Stimulating Hormone < 0.015 uIU/mL (0.47-4.68)
[2022-05-21 14:27] LABS: Free T4, Direct Thyroxine 1.78 ng/dL (0.78-2.19)
[2022-05-22 05:24] LABS: Thyroid Peroxidase Antibodies 154 IU/mL (0-34)
[2022-05-23 13:57] LABS: ANA Screen, IFA Negative (.)
== END ==
PROVIDERS: PCP Naturopath; Referring Provider Naturopath; Visit Provider Naturopath
DX: E06.3 Autoimmune thyroiditis (principal); E78.5 Hyperlipidemia, unspecified; M25.50 Pain in unspecified joint
CPT/HCPCS: 36415; 80061; 84439; 84443; 84481; 86038; 86140; 86376; 86430

== ENCOUNTER → 2022-05-24 10:46 | Outpatient (CLI) | payer OTHER, SELFPAY ==
[2019-08-19 16:54] VITALS: BMI 20.3
[2022-05-24 11:35] LABS: COVID19 -Nasal RAPID Negative (Negative)
== END ==
PROVIDERS: PCP Naturopath; Visit Provider Registered Nurse
DX: Z20.822 Contact with and (suspected) exposure to COVID-19 (principal)
CPT/HCPCS: 87635

== ENCOUNTER → 2022-07-16 08:10 | Outpatient (CLI) | payer OTHER, SELFPAY ==
[2019-08-19 16:54] VITALS: BMI 20.3
[2022-07-16 10:46] LABS: Thyroid Stimulating Hormone 0.028 uIU/mL (0.47-4.68)
[2022-07-16 17:57] LABS: Free T3, Triiodothyronine Free 4.01 pg/mL (2.77-5.27); Free T4, Direct Thyroxine 1.38 ng/dL (0.78-2.19)
== END ==
PROVIDERS: PCP Naturopath; Referring Provider Naturopath; Visit Provider Naturopath
DX: E06.3 Autoimmune thyroiditis (principal)
CPT/HCPCS: 36415; 84439; 84443; 84481

== ENCOUNTER → 2022-09-04 07:48 | Outpatient (CLI) | payer OTHER, SELFPAY ==
[2019-08-19 16:54] VITALS: BMI 20.3
[2022-09-04 08:44] LABS: Free T3, Triiodothyronine Free 2.86 pg/mL (2.77-5.27); Free T4, Direct Thyroxine 0.87 ng/dL (0.78-2.19)
[2022-09-04 08:57] LABS: Thyroid Stimulating Hormone 3.75 uIU/mL (0.47-4.68)
== END ==
PROVIDERS: PCP Naturopath; Referring Provider Naturopath; Visit Provider Naturopath
DX: E06.3 Autoimmune thyroiditis (principal)
CPT/HCPCS: 36415; 84439; 84443; 84481

== ENCOUNTER → 2024-01-14 17:34 | Outpatient (CLI) | payer OTHER, SELFPAY ==
[2019-08-19 16:54] VITALS: BMI 20.3
--- NOTE | 2024-01-14 17:36 | DI.RAD.S_ITS ---
PROCEDURE: XR HIP W PEL IF DONE RT 2V INDICATIONS: RT HIP PAIN TECHNIQUE: AP pelvis with lateral view(s) of the right hip(s). COMPARISON: None. FINDINGS: Bones: No fractures or dislocations. Pelvic ring appears intact. No suspicious bony lesions. No gross degenerative joint space narrowing or erosions. Soft tissues: The visualized bowel gas pattern is normal. No suspicious soft tissue calcifications. IMPRESSION: No acute bony abnormality. No definitive changes of arthritis. Dictated by: Tonja Mills M.D. on 01/15/2024 at 11:19 Approved by: Tonja Mills M.D. on 01/15/2024 at 11:19
== END ==
PROVIDERS: PCP Naturopath; Referring Provider Naturopath; Visit Provider Naturopath
DX: M25.551 Pain in right hip (principal)
CPT/HCPCS: 73502

== ENCOUNTER → 2024-01-23 07:49 | Outpatient (CLI) | payer OTHER, SELFPAY ==
[2019-08-19 16:54] VITALS: BMI 20.3
[2024-01-23 08:52] LABS: Add Manual Diff / Slide Review NO; Basophils Absolute Auto 0 /uL (0-100); Basophils Percent Auto 0.9 % (0-2); Eosinophils Absolute Auto 100 /uL (0-450); Eosinophils Percent Auto 3.5 % (2-4); Hematocrit 35.1 % (36-46); Hemoglobin 11.7 g/dL (12.0-16.0); Lymphocytes Absolute Auto 1500 /uL (1100-4500); Lymphocytes Percent Auto 39.8 % (25-40); Mean Corpuscular HGB Conc 33.4 % (30-36); Mean Corpuscular Hemoglobin 28.6 PG (26-34); Mean Corpuscular Volume 85.6 fL (80-100); Monocytes Absolute Auto 300 /uL (0-900); Monocytes Percent Auto 8.3 % (3-14); Neutrophils Absolute Auto 1800 /uL (1500-7000); Neutrophils Percent Auto 47.5 % (50-75); Platelet Count 339 X10^3/uL (150-400); Red Cell Distribution Width 14.2 % (11.6-14.8); White Blood Cell Count 3.7 X10^3/uL (4.5-11.0)
[2024-01-23 09:15] LABS: Alanine Aminotransferase 16 IU/L (<35); Albumin 4.3 g/dL (3.5-5.0); Albumin Globulin Ratio 1.4 (1.0-2.8); Alkaline Phosphatase 76 U/L (38-126); Aspartate Aminotransferase 24 IU/L (14-36); BUN Creatinine Ratio 25.7 (6-22); Bilirubin Total 0.3 mg/dL (0.2-1.3); Blood Urea Nitrogen 19 mg/dL (7-17); Calcium 9.1 mg/dL (8.4-10.2); Carbon Dioxide 32 mmol/L (22-32); Chloride 105 mmol/L (98-107); Cholesterol 239 mg/dL (140-199); Estimated Glomerular Filt Rate > 60 mL/min (>60); Globulin 3.1 g/dL (1.7-4.1); Glucose 86 mg/dL (70-100); HDL Cholesterol 82 mg/dL (40-60); HEMOLYSIS < 15 (0-50); LDL Cholesterol Calculated 141 mg/dL (<100); Potassium 4.3 mmol/L (3.4-5.1); Sodium 140 mmol/L (137-145); Total Protein 7.4 g/dL (6.3-8.2); Triglycerides 80 mg/dL (35-150)
[2024-01-23 09:31] LABS: Free T3, Triiodothyronine Free 3.62 pg/mL (2.77-5.27); Free T4, Direct Thyroxine 1.15 ng/dL (0.78-2.19)
[2024-01-24 03:36] LABS: Apolipoprotein B 95 mg/dL (<90)
[2024-01-24 07:36] LABS: Thyroid Peroxidase Antibodies 186 IU/mL (0-34)
[2024-01-26 23:39] LABS: Lipoprotein (a) 169.4 nmol/L (<75.0)
== END ==
PROVIDERS: PCP Naturopath; Referring Provider Naturopath; Visit Provider Naturopath
DX: Z00.00 Encounter for general adult medical examination without abnormal findings (principal); E78.00 Pure hypercholesterolemia, unspecified; E06.3 Autoimmune thyroiditis
CPT/HCPCS: 36415; 80053; 80061; 82172; 83695; 84439; 84443; 84481; 85025; 86376